=== PATIENT | female | born 1950 | race Caucasian/White ===

== ENCOUNTER 2024-04-16 01:02 | Emergency (ER) | payer MEDICARE, MEDICAID, SELFPAY ==
--- NOTE | ~2024-04-16 | CT_ITS ---
Noncontrast CT scan of the thoracolumbar spine CLINICAL HISTORY: Back pain TECHNIQUE: Axial noncontrast imaging of the thoracolumbar spine was performed. Sagittal and coronal r eformatted images were constructed. Dose reduction technique was used on this scan by utilizing autom ated exposure control and iterative reconstruction technique. The dose-length product (DLP) was 1179. 04 mGy-cm. FINDINGS: There is no fracture or subluxation of the thoracic spine. Vertebral bodies maintain normal height and alignment. Extensive anterior flowing osteophytes throughout the thoracic spine are greta tible with extensive DISH. There are minimal degenerative disc changes throughout the thoracic spine. There is advanced degenerative disc narrowing at T12-L1. There is scattered facet joint degenerative changes in the thoracic spine. No significant disc bulge or herniation evident in the thoracic spine. No definite high-grade canal s tenosis or cord compression identified. Neural foramina. Relatively well-preserved. Moderate hiatal hernia present. Paravertebral soft tissues otherwise are unremarkable. No acute fracture of the lumbar spine seen. There is 9 mm anterolisthesis of L4 over L5. There is min imal grade 1 retrolisthesis of L1 over L2. At L1-L2, there is minimal disc bulge and moderate facet arthropathy. There is probable mild to moder ate central canal stenosis. There is advanced bilateral neural foraminal narrowing. At L2-L3, there is disc bulge and facet arthropathy, resulting in moderate central canal stenosis/the alejandro sac compression. There is severe right neural foraminal narrowing, and mild left neural foraminal narrowing. L3-L4, disc bulge and facet arthropathy are present, with probable mild to moderate central canal venessa nosis. There is severe bilateral neural foraminal narrowing. At L4-L5, disc bulge/uncovering and severe facet arthropathy result in severe spinal canal stenosis/t hecal sac compression. There is severe bilateral neural foraminal conference. At L4-S1, there is facet arthropathy. No definite canal stenosis. There is moderate to severe bilater al neural foraminal narrowing. Paravertebral soft tissues are unremarkable. Impression: No acute fracture seen in the cervical lumbar spine. 9 mm anterolisthesis of L4 over L5. Severe degenerative spondylosis throughout the lumbar spine, worst at L4-L5. Mild spondylosis of the thoracic spine. Extensive DISH of the thoracic spine. Reviewed, dictated and finalized at location M. Impression: No acute fracture seen in the cervical lumbar spine. 9 mm anterolisthesis of L4 over L5. Severe degenerative spondylosis throughout the lumbar spine, worst at L4-L5. Mi ld spondylosis of the thoracic spine. Extensive DISH of the thoracic spine.
--- NOTE | ~2024-04-16 | CT_ITS ---
Noncontrast CT scan of the cervical spine Technique: Multiple contiguous axial [address] images of the cervical spine were obtained and rec onstructed in 2D sagittal and coronal planes on the acquisition scanner. Dose reduction technique was used on this scan by utilizing automated exposure control, adjustment of the mA and/or kV according to patient size. The dose-length product (DLP) was 300.21 mGy-cm. Clinical History: Pain Findings: No acute fracture seen. There is 7 mm anterolisthesis of C4 over C5. There is advanced dege nerative disc narrowing at C4-C5, C5-C6, C6-C7, with uncovertebral degenerative changes. There is fus ion of the left C5-C6 facet joint. There is right neural foraminal narrowing at C3-C4 with prominent right facet arthropathy. There is probable severe canal stenosis at C4-C5 related to the listhesis. T here is severe bilateral facet arthropathy with bilateral neural foraminal narrowing. There is probab le bilateral neural foraminal narrowing at C5-C6, with facet arthropathy and disc osteophyte complex. There is mild bilateral neural foraminal narrowing at C6-C7. Disc osteophyte complex results in prob able mild to moderate canal stenosis. No prevertebral soft tissue swelling. Impression: No acute fracture seen. 7 mm anterolisthesis of C4 over C5, with severe degenerative spondylosis at this level, including sev ere spinal canal stenosis and advanced bilateral neural foraminal narrowing. Additional degenerative changes, as detailed above. Reviewed, dictated and finalized at [facility]. Impression: No acute fracture seen. 7 mm anterolisthesis of C4 over C5, with severe degenerative spondylosis at thi s level, including severe spinal canal stenosis and advanced bilateral neural f oraminal narrowing. Additional degenerative changes, as detailed above.
--- NOTE | ~2024-04-16 | CT_ITS ---
Non-contrast Head CT History: Status post fall Technique: Axial non-contrast imaging of the brain was performed. Dose reduction technique was used on this scan by utilizing automated exposure control and iterative reconstruction technique. The dose -length product (DLP) was 1362.00 mGy-cm. Findings: There is no evidence of intracranial hemorrhage, mass lesion, or acute infarct. Brain par enchyma appears normal. The ventricles and subarachnoid spaces are normal in size. The calvarium ap pears normal. The visualized paranasal sinuses and mastoid air cells are clear. Impression: No significant abnormality seen. Reviewed, dictated and finalized at location . Impression: No significant abnormality seen.
--- NOTE | 2024-04-16 01:08 | ED.GENADULT ---
HPI - General Adult General Chief complaint: Unspecified Stated complaint: possible spinal fx Time Seen by Provider: 04/16/24 01:02 History of Present Illness HPI narrative: patient 73-year-old female who presents emergency department with chief complaint of possible cervical spine fracture. The patient was recently admitted at [facility] in all in the transferred all needs rehab and then to the [facility] or for rehab. The patient has had difficulty walking since a fall and apparently was evaluated at [facility] had x-rays and was told no fractures. Patient had an x-ray done at the nursing facility yesterday that showed that she had a possible C5 fracture Review of Systems Review of Systems: A 10 system review of systems was completed on the patient and is negative except for what is stated in the HPI. Nursing and ancillary documentation was reviewed. Exam Narrative: GENERAL: Well-appearing, well-nourished, and in no acute distress. HEAD: Normocephalic, atraumatic. EYES: PERRLA and EOMI. ENT: Nares clear, no rhinorrhea or epistaxis. Mucous membranes moist. NECK: Supple. CHEST: Clear to auscultation. No respiratory distress. HEART: Regular rate and rhythm. No murmur heard. Normal peripheral pulses. ABDOMEN: Soft, nontender, nondistended, normal active bowel sounds. EXTREMITIES: Normal range of motion. No edema. SKIN: Warm, dry, no rash. NEURO: No focal deficits. Alert and oriented x3. PSYCH: Normal mood and affect. Medical Decision Making MDM Narrative Medical decision making narrative: Differential diagnosis includes fracture, contusion CT C-spine was obtained that showed no evidence of fracture CT T-spine showed no fracture CT lumbar spine showed no fracture CT brain showed no acute abnormality Discharge Plan Discharge Clinical Impression: Back pain Patient Disposition: NH Senior Care/Asst Living Condition: Stable Instructions: Antibiotic Form, Back Pain (ED) Additional Instructions: the CT scan showed no evidence of fracture your cervical thoracic or lumbar spine Time of Disposition: 03:35
[2024-04-16 03:52] VITALS: BP 154/80; PULSE 81; RESP 15; O2SAT 98
[2024-04-16 04:44] VITALS: BP 150/82; PULSE 83; RESP 15; O2SAT 98
== END 2024-04-16 04:47 ==
PROVIDERS: Emergency Provider Emergency Medicine
DX: M54.9 Dorsalgia, unspecified (principal); M47.812 Spondylosis without myelopathy or radiculopathy, cervical region; M48.02 Spinal stenosis, cervical region; M47.814 Spondylosis without myelopathy or radiculopathy, thoracic region; M47.816 Spondylosis without myelopathy or radiculopathy, lumbar region; M48.14 Ankylosing hyperostosis [Forestier], thoracic region
CPT/HCPCS: 70450; 72125; 72128; 72131; 99284; J2270

== ENCOUNTER 2024-07-01 08:21 | Outpatient (CLI) | payer MEDICARE, SELFPAY ==
--- NOTE | ~2024-07-01 | MR_ITS ---
MR cervical spine wo con Ordering provider: Tanner Archer MD History: 74 years Female with . SEVERE BACK PAIN . Comparison: None. Technique: MRI cervical spine without contrast. FINDINGS: CERVICAL SPINAL CORD/CRANIAL CERVICAL JUNCTION: Myelomalacia is seen at the level of C4-C5. CERVICAL VERTEBRAL BODIES: Anterolisthesis seen at the level of C4-C5. Otherwise, Normal height and a lignment. Normal marrow signal. DISK SPACES: Endplate changes seen at the level of C4-C5. Narrowing of the disc C4-C5, C5-C6 and C6-7 . Multilevel facet joint disease bilaterally. C2-C3: No stenosis. C3-C4: No stenosis. Posterior osteophytes with disc bulge. Narrowing of the right intervertebral fora men with root compression. C4-C5: Severe spinal canal stenosis secondary to broad based disc bulge. Bilateral narrowing of the foramina with root compression. C5-C6: No stenosis. Mild Joint osteophytes slight narrowing of the foramina. C6-C7: No stenosis. Diffuse disc bulge with bilateral narrowing of the foramina and root compression . C7-T1: No stenosis. VISUALIZED PARASPINOUS SOFT TISSUES: Normal. IMPRESSION: 1. 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 2. Multilevel degenerative disc disease with variable degrees of spinal canal stenosis, intervertebr al foraminal narrowing and nerve root compression. 3. Anterolisthesis at the level of C4-C5. . Reviewed, dictated and finalized at location A. IMPRESSION: 1. 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 2. Multilevel degenerative disc disease with variable degrees of spinal canal stenosis, intervertebral foraminal narrowing and nerve root compression. 3. Anterolisthesis at the level of C4-C5. .
== END 2024-07-01 08:22 | disposition home or self-care (01) ==
PROVIDERS: PCP Family Medicine; Visit Provider Family Medicine
DX: M50.323 Other cervical disc degeneration at C6-C7 level (principal); M48.02 Spinal stenosis, cervical region; R53.81 Other malaise; G93.41 Metabolic encephalopathy; G62.9 Polyneuropathy, unspecified; E83.31 Familial hypophosphatemia; I10 Essential (primary) hypertension; M54.9 Dorsalgia, unspecified; E78.5 Hyperlipidemia, unspecified; Z91.81 History of falling; L89.626 Pressure-induced deep tissue damage of left heel; M62.81 Muscle weakness (generalized)
CPT/HCPCS: 72141

== ENCOUNTER 2024-07-08 13:21 | Outpatient (CLI) | payer MEDICARE, SELFPAY ==
--- NOTE | ~2024-07-08 | XR_ITS ---
XR cervical spine 4-5V Ordering provider: Esperanza Menezes MD History: . M43.12 - Spondylolisthesis, cervical region . Comparison: CT done on April 16, 2024 FINDINGS: VERTEBRAL BODIES: Significant Anterolisthesis seen at the level of C4-C5. DISK SPACES: Narrowing of the disc C4-C5, C5-C6 and C6-C7. Multilevel facet joint disease. Multilevel uncovertebral joint osteoarthritic changes. PARASPINOUS SOFT TISSUES: No prevertebral soft tissue swelling. IMPRESSION: Anterolisthesis at the level of C4-C5. No change from previous examination is noted. Multilevel degenerative disc disease, facet joint disease and uncovertebral joint osteoarthritic white ges. Reviewed, dictated and finalized at location A. IMPRESSION: Anterolisthesis at the level of C4-C5. No change from previous examination is n oted. Multilevel degenerative disc disease, facet joint disease and uncovertebral alli nt osteoarthritic changes.
== END 2024-07-08 13:22 | disposition home or self-care (01) ==
PROVIDERS: PCP Family Medicine; Visit Provider Neurological Surgery
DX: M43.12 Spondylolisthesis, cervical region (principal); M50.321 Other cervical disc degeneration at C4-C5 level; M50.322 Other cervical disc degeneration at C5-C6 level; M50.323 Other cervical disc degeneration at C6-C7 level; M47.892 Other spondylosis, cervical region
CPT/HCPCS: 72050

== ENCOUNTER 2024-07-28 14:11 | Inpatient (IN) | payer MEDICARE, MEDICAID, SELFPAY ==
[2024-07-27 12:34] VITALS: BMI 25.0
--- NOTE | 2024-07-27 12:46 | PC.NURSE ---
Report to the Outpatient Waiting Room, entrance under the green pavilion located off [facility], at time ___7:30AM____ on date ___07/28/24____. Planned Procedure Time: ___9:30AM .? Time changes happen often and if your time is changed the preop area will call you the afternoon before. - You and your visitor will be asked to self-screen and do not enter if you have any COVID symptoms. Please call surgeon if you need to reschedule. - A mask is optional within the hospital at this time. Patients may have clear liquids (water, carbonated beverages, clear teas, apple juice) until 6:30AM, 3 hours prior to surgery with a maximum of 20 ounces. - No food from midnight until time of surgery and no smoking. Take only the following medications with a SIP of water on the morning of surgery: __CARVEDILOL, GABAPENTIN, SERTRALINE, TRAMADOL. MAY GIVE ONDANSETRON NEEDED FOR NAUSEA. DO NOT STOP ANY OF YOUR OTHER PRESCRIPTION MEDICATIONS PRIOR TO SURGERY EXCEPT THE FOLLOWING Medications to discontinue per physician ___HOLD ALL VITAMINS/SUPPLEMENTS 7 DAYS PRE-OP PER DR JHA(PER [facility] WRITTEN INSTRUCTIONS)- LAST DOSE 07/20/24. Please no make-up, nail chinese, hairspray, perfume, deodorant, or body powder the day of surgery.? No jewelry (including any body piercings) or valuables the day of surgery, leave them at home.? Please take a shower or bath the night before, or the morning of, surgery with an antibacterial soap.? Wear comfortable, loose fitting clothing.? - Jewelry must be removed prior to entering the operating room.? Rings and piercings that are not removed may be cut off. - The hospital will not accept responsibility for valuables.? - Please leave all valuables, including medications, at home the day of surgery. If you are going home after surgery, a licensed front loader residential driver must drive you home.? - NO public transportation without another adult if you receive anesthesia. - We recommend that an adult stay with you for 24 hours following discharge. - We also recommend that you do not drive, make important decision, drink alcoholic beverages, or take any drugs that were not prescribed by your health care provider for at least 24 hours after your discharge time. Follow any additional instructions given to you from your surgeon. Telephone instructions given to ____NURSING HOME NURSEJERROD and asked if any additional questions and then verbalized understanding. Patient advised to call surgeon office or pre surgery nurse liaison [phone] if any additional questions.
[2024-07-28] VITALS (28 sets, daily range): BP systolic 117–180; BP diastolic 53–88; PULSE 42–65; RESP 8–22; TEMP 36.2–36.7; O2SAT 92–100; BMI 29.7
--- NOTE | ~2024-07-28 | XR_ITS ---
EXAMINATION: XR fluoroscopy no charge DATE: 07/28/2024 13:54 INDICATION: Cervical spondylosis. TECHNIQUE: 5 intraoperative fluoroscopic views of the cervical spine were obtained. I was not present . Fluoroscopy exposure time was 29 seconds. COMPARISON: Cervical spine radiographs 07/08/2024 FINDINGS: There is 4 mm anterolisthesis of C4 on C5. There are changes of posterior fusion procedure from C3 to C7 with lateral mass screws. IMPRESSION: 1. Posterior fusion procedure from C3 to C7. Reviewed, dictated and finalized at location B.
--- NOTE | ~2024-07-28 | XR_ITS ---
EXAMINATION: XR chest 1V portable Exam Date/Time: 07/28/2024 21:29 CDT HISTORY: hypercapnia Comparison: CT T-spine 04/16/2024. RESULT: Lines, tubes, and devices: None. Lungs and pleura: Senescent/emphysematous change. Left basilar scar/atelectasis. Cardiomediastinal silhouette: Stable. Other: No acute osseous or upper abdominal finding. Degenerative changes in the spine and bilateral shoulders IMPRESSION: No acute cardiopulmonary process. Reviewed, dictated and finalized at location K.
[2024-07-28] MEDS: LACTATED RINGERS 1,000 ML 30 ML IV CONT ×2 (08:00→14:19)
--- NOTE | 2024-07-28 09:14 | WPDHPUPDATE1 ---
History and Physical Update Update Date/Time: 07/28/24 09:14 History and Physical has been reviewed, including an updated exam of the patient. There are NO changes in the patient's condition. Risks, benefits, and alternatives have been discussed and questions answered. Patient agrees to proceed with procedure.
--- NOTE | 2024-07-28 09:33 | P.PNAN_ITS ---
Anes - Initial Pre Proc Eval Procedure: Operation Date: 07/28/24 10:00 Proposed Procedures p Posterior Cervical Decompression and Fusion C3- C6 - Esperanza Menezes MD Date/Time: 07/28/24 09:33 Surgeon: Esperanza Menezes MD Pre Op Diagnosis: cervical myelopathy,cervical spondylolisthesis Patient Data Age: 74 Gender: F Height: 1.52 m Weight: 69 kg Last Vital Signs Temp 36.7 C 07/28/24 08:00 Pulse 52 L 07/28/24 08:00 Resp 14 07/28/24 08:00 BP 150/64 H 07/28/24 08:00 Pulse Ox 97 07/28/24 08:00 O2 Del Method Room Air 07/28/24 08:00 Allergies Allergy/AdvReac Type Severity Reaction Status Date / Time Penicillins Allergy Severe Unknown Verified 07/28/24 08:41 Home Medications Medication Instructions Recorded Confirmed Type acetaminophen 325 mg capsule 650 mg PO Q6H PRN Pain 07/07/24 07/27/24 History atorvastatin 10 mg tablet (Lipitor) 10 mg PO EVERY OTHER DAY 07/07/24 07/28/24 History baclofen 5 mg tablet 5 mg PO TID 07/07/24 07/28/24 History bisacodyl 10 mg rectal suppository 10 mg RECTAL DAILY PRN Constipation 07/07/24 07/27/24 History gabapentin 400 mg capsule 400 mg PO TID 07/07/24 07/28/24 History lidocaine 5 % topical patch 1 patch topical DAILY 07/07/24 07/27/24 History losartan 100 mg tablet 100 mg PO DAILY 07/07/24 07/28/24 History magnesium citrate (Citroma oral 300 ml PO DAILY PRN Constipation 07/07/24 07/27/24 History solution) ondansetron 4 mg disintegrating 4 mg PO Q6H PRN Nausea And Vomiting 07/07/24 07/27/24 History tablet potassium chloride 10 mEq 10 meq PO DAILY 07/07/24 07/28/24 History capsule,extended release ropinirole 0.25 mg tablet 0.25 mg PO HS 07/07/24 07/28/24 History sennosides 8.6 mg tablet 8.6 mg PO BID 07/07/24 07/28/24 History sertraline 50 mg tablet 100 mg PO QAM 07/07/24 07/28/24 History sodium phosphates 19 gram-7 118 ml RECTAL ONCE PRN Constipation 07/07/24 07/27/24 History gram/118 mL enema (Fleet Enema) tramadol 50 mg tablet 100 mg PO BID PRN Pain 07/07/24 07/28/24 History alprazolam 0.25 mg tablet 0.25 mg PO BID 07/27/24 07/28/24 History carvedilol 6.25 mg tablet 6.25 mg PO BID 07/27/24 07/28/24 History cholecalciferol (vitamin D3) 25 25 mcg PO DAILY 07/27/24 07/28/24 History mcg (1,000 unit) tablet magnesium hydroxide 400 mg/5 mL 30 ml PO HS PRN Constipation 07/27/24 07/27/24 History oral suspension (Milk of Magnesia) multivitamin 1 tablet PO DAILY 07/27/24 07/28/24 History polyethylene glycol 3350 17 17 g PO DAILY 07/27/24 07/28/24 History gram/dose oral powder Laboratory Tests 07/28/24 08:03 Blood Type O Positive Antibody Screen Negative Patient hx anesthesia problems: none Family hx anesthesia problems: none Results Review: All pre-operative results and documents have been reviewed as part of the pre- operative evaluation. [facility] Past Medical History Medical History Anxiety Arthritis Hypertension IBS (irritable bowel syndrome) Migraine Family History Family History Father Hypertension Mother Lung cancer Social History Social History Smoking status: Unknown if ever smoked Alcohol intake: unknown Substance use: unknown Do You Feel Safe in your Home?: Yes Lack of Transportation: No Lack of Food: Never True Current Housing: I Have Housing Concerned About Future Housing: No Difficulty Paying Gas/Electric Bills: No Difficulty Paying for Meds: No Currently Unemployed: No Education: High School Diploma/GED Difficulty w/ Childcare or Family Care: No Living arrangements: fpc Anes - Eval Final PreProcedure Day of Procedure 07/28/24 09:33 Patient weight: overweight Heart: regular rate and rhythm Lungs: clear to auscultation and normal air movement Airway: Mallampati scale class III Neurological: alert and oriented Last oral intake: >/= 8 hours ASA classification: III Emergent: no Anesthetic plan: proceed Anesthesia type and monitoring: general ETT (TIVA) Results Review: All pre-operative results and documents have been reviewed as part of the pre- operative evaluation. Informed Consent: The patient's anesthetic plan and its attendant risks and benefits were discussed with the patient/family/POA. Questions were solicited and answers provided to the satisfaction of the patient/family/POA.
[2024-07-28] MEDS: ceFAZolin 2 GM/D5W 50 ML 2 GM/50 ML BAG IVPB (09:44)
[2024-07-28] MEDS: LIDO 1%/EPINEPHRINE 1:100,000 20 ML VIAL 30 ML INFILTRATE (10:08)
--- NOTE | 2024-07-28 14:17 | PM.OP ---
Procedure Note - Brief Procedure Note - Brief Date of procedure: 07/28/24 cervical myelopathy,cervical spondylolisthesis Post-op diagnosis: Same Procedure performed: C3-7 instrumentation and arthrodesis C3, C4, C5, and C6 laminectomies Surgeon: Esperanza Menezes MD Anesthesia: GETA Findings: Wide decompression of spinal cord with stabilization from C3-7 Estimated blood loss (mL): 200 Drains: Yes Packing: No Pathology: None sent Complications: None Condition: Stable Disposition: PACU
--- NOTE | 2024-07-28 15:27 | SUR.PHASEI ---
Notified Dr. Marquez regarding patient sleeping/sedated with oral airway for i hour in PACU. Very small grimace to sternal rub. Dr. Marquez stated to continue to monitor patient and update Dr. Menezes as well.
[2024-07-28 15:39] LABS: Glucose Point of Care 112 mg/dl (65-105)
--- NOTE | 2024-07-28 15:45 | SUR.PHASEI ---
Update given to Dr. Menezes. Patient slightly more responsive to sternal rub. Patient attempts to open eyes when name is called. Dr. Menezes stated she would call back to check on patient.
--- NOTE | 2024-07-28 17:10 | SUR.PHASEI ---
Dr. Stinson at bedside to assess patient per RN request. ABG ordered.
--- NOTE | 2024-07-28 17:17 | SUR.PHASEI ---
Dr. Stinson notified of critical ABG results. Bipap ordered. RT aware.
[2024-07-28 17:18] LABS: Alveolar/Arterial O2 Gradient 25.8 mmHg; Base Excess ABG 0.1 mEq/l (+/-2.0); Fractional Inspired Oxygen 24 %; HCO3 ABG 28.7 mEq/l (22.0-26.0); Oxygen Content ABG 19.4 %vol (16.0-22.0); Oxygen Saturation ABG 91.2 % (95.0-100.0); Oxyhemoglobin 91.8 % THb (90.0-100.0); PO2 ABG 69.6 mmHg (80.0-100.0)
[2024-07-28 17:22] LABS: Device NASAL CANNULA; Modified Allen's Test Pass; PCO2 ABG 63.6 mmHg (35.0-45.0); Site Drawn RIGHT RADIAL; pH ABG 7.272 (7.350-7.450)
--- NOTE | 2024-07-28 17:31 | W.PM.PROC2 ---
Procedure Note - Detailed Date of Procedure 07/28/24 Pre-op Diagnosis cervical myelopathy,cervical spondylolisthesis Post-op Diagnosis Same Procedure Performed 1. C3, C4, C5, C6, and C7 lateral mass instrumentation 2. C3-4, C4-5, C5-6, and C6-7 arthrodesis with autograft and allograft 3. C3, C4, C5, and C6 laminectomies 4. Use of C-arm for fluoroscopy 5. Use of MEP and SSEP neuromonitoring Surgeon Esperanza Menezes MD Section Leader And Machine Setter [facility] Anesthesia General Description of Procedure The patient was brought to the operating room where endotracheal anesthesia was induced. Servin catheter was placed. Neuromonitoring leads were placed, and a pre-flip baseline was obtained. The [place] headholder was applied, and the patient was transferred to the operating table in the prone position. The head was secured to the bed. All pressure points were padded. The C-arm was used to evaluate the planned incision. The planned surgical site was prepped and draped in usual sterile fashion. Time out was conducted, and local anesthesia was injected. After flipping, the motors in the left leg became diminished. We verified adequate blood pressure and reviewed positioning. A 10-blade scalpel was used to make the incision. The subcutaneous tissue was dissected with the bovie until the spinous processes were encountered. Self-retaining retractors were placed. A clamp was placed on a spinous process which was confirmed to be the C3 level with the C-arm. The incision was extended inferiorly to better expose down to the inferior level. The muscles were elevated in a subperiosteal fashion to expose the laminae and lateral masses of C4 through C7 bilaterally. The facet joints were exposed and defined with the bovie, and the pilot plant operator helper holes for the lateral mass screws were created with the high-speed drill. On the right side, the hand drill was used to drill through the lateral mass to a depth of 12mm at C4. The trajectory was palpated with a ball-tip probe to ensure where were no breeches in the bone. The drill was then lengthened to 14mm. The 3.0mm tap was then passes. This was repeated at C4, C5, C6, and C7. Bone wax was placed over the screw holes. This was then repeated on the left side at C4, C5, C6, and C7. We then turned our attention to the laminectomies. The high-speed drill was used to create a trough through the laminae of C4, C5, and C6. The posterior elements were elevated with a Leksell and Kerrison rongeurs, and the bone was passed off to be morselized for autograft. The ligamentum flavum was elevated with the bone. Small residual pieces of ligamentum and bone were removed with the kerrison. The facet joints were decorticated with the drill.? We ensured hemostasis with the bipolar and Floseal. We next turned our attention to the lateral mass screws. The screw trajectories were palpated again with the balltip probe. 14 x 3.5mm screws were placed at each level bilaterally with exception of at C4 were 12mm screws were placed. We then obtained an xray that showed that the C4-7 levels had been instrumented. I intended to instrument and decompress C3 as well. Therefore, we then placed 14mm screws at C3 in the same manner as described above. The spinous process and lamina at C3 were somewhat obscured by the spinous process at C2 but were able to be removed. A 60mm beatriz was placed bilaterally. The set screws were placed which were final tightened. The area was copiously irrigated. The bone and facets were decorticated. Magnetos followed by morselized autograft was placed lateral to the screws bilaterally and into the facets. A hemovac drain was placed in the epidural space and tunneled inferiorly. Motors and SSEPs remained stable throughout the case. The muscle was approximated with 0 vicryl. The fascia was closed with 0 vicryl as well. The dermis was closed with 2-0 and 3-0 vicryl. The skin was closed with running 3-0 nylon. The drain was secured with a nylon as well. Sterile dressings were placed. The patient was then removed from the [place] headholder and returned supine. The patient was extubated and transferred to the PACU in stable condition. Billing codes: 56257, 24677, 33082 x 3, 32429 Drains Yes Packing No Pathology None sent Complications None Condition Stable Disposition PACU [facility] Billing Surgery - Charge Forward: Surgery Billing
--- NOTE | 2024-07-28 17:40 | SUR.PHASEI ---
Dr. Menezes updated on patient's need for continuous bipap and transfer to IMU. Orders entered. Hospitalist Nadege Sims aware of new consult.
--- NOTE | 2024-07-28 17:56 | WPDNEUROSGPN ---
Progress Note: A&P Assessment and Plan (1) Cervical myelopathy: Code(s): G95.9 - Disease of spinal cord, unspecified Status: Acute (2) Status post cervical arthrodesis: Code(s): Z98.1 - Arthrodesis status Status: Acute Plan -She will need to go to IMU with BiPAP -Hospitalist has been consulted for assistance with BiPAP management - appreciate help -Hemovac drain to suction -PT/OT evaluations tomorrow -Pain control Subjective Date/time seen: 07/28/24 17:56 Interval history: She has been very slow to wake up after surgery. Anesthesia recently checked an ABG showing CO2 retention, and they recommended BiPap which has helped her wake up much more quickly. Exam Narrative: Opens eyes to voice Answering questions Following commands in all extremities Antigravity strength in arms Wiggling toes briskly to command Some movement noted in legs Sensation intact Objective Data Vital Signs Vital Signs: Vital Signs - 24 hr 07/28/24 08:00 07/28/24 14:19 07/28/24 14:35 Temperature 98.0 F 97.3 F L Pulse Rate 52 L 60 53 L Respiratory Rate 14 8 L 10 L Blood Pressure 150/64 H 180/69 H 117/53 L Pulse Oximetry 97 100 100 Oxygen Delivery Room Air Simple Face Mask Simple Face Mask Oxygen Flow Rate 8 8 Fraction of Inspired Oxygen 07/28/24 14:50 07/28/24 15:05 07/28/24 15:20 Temperature Pulse Rate 53 L 55 L 63 Respiratory Rate 12 10 L 12 Blood Pressure 118/55 L 118/54 L 127/62 Pulse Oximetry 100 100 100 Oxygen Delivery Simple Face Mask Simple Face Mask Simple Face Mask Oxygen Flow Rate 8 8 8 Fraction of Inspired Oxygen 07/28/24 15:35 07/28/24 15:50 07/28/24 16:05 Temperature Pulse Rate 59 L 57 L 62 Respiratory Rate 10 L 12 12 Blood Pressure 135/60 142/63 H 144/83 H Pulse Oximetry 100 100 92 Oxygen Delivery Simple Face Mask Simple Face Mask Room Air Oxygen Flow Rate 8 6 Fraction of Inspired Oxygen 07/28/24 16:20 07/28/24 16:35 07/28/24 16:50 Temperature Pulse Rate 63 63 65 Respiratory Rate 12 12 12 Blood Pressure 163/69 H 167/63 H 165/85 H Pulse Oximetry 100 100 99 Oxygen Delivery Nasal Cannula Nasal Cannula Nasal Cannula Oxygen Flow Rate 2 2 1 Fraction of Inspired Oxygen 07/28/24 17:05 07/28/24 17:20 07/28/24 17:35 Temperature 97.2 F L Pulse Rate 59 L 58 L 48 L Respiratory Rate 12 12 18 Blood Pressure 163/82 H 160/82 H 130/57 L Pulse Oximetry 99 95 97 Oxygen Delivery Nasal Cannula Nasal Cannula BiPAP Oxygen Flow Rate 1 1 Fraction of Inspired Oxygen 30 07/28/24 17:34 Temperature Pulse Rate 53 L Respiratory Rate 13 Blood Pressure Pulse Oximetry 100 Oxygen Delivery BiPAP Oxygen Flow Rate Fraction of Inspired Oxygen Intake/Output Intake/Output: Intake & Output 07/25/24 07/26/24 07/27/24 07/28/24 23:59 23:59 23:59 23:59 Intake Total 50 Balance 50 Meds/Results Medications: Active Medications Generic Name Dose Route Start Last Admin Trade Name Freq PRN Reason Stop Dose Admin Acetaminophen 1,000 mg 07/28/24 14:15 Acetaminophen 500 Mg Tablet PO Q6H [facility] Al Hydrox/Mg Hydrox/Simethicone 20 ml 07/28/24 14:11 Mag Hydrox/Al Hydrox/Simeth 30 Ml Udc PO Q4H PRN Indigestion/Heartburn Alprazolam 0.25 mg 07/28/24 17:00 Alprazolam (*Crx) 0.25 Mg Tablet PO BID [facility] Atorvastatin Calcium 10 mg 07/30/24 09:00 Atorvastatin 10 Mg Tablet PO Q48H [facility] Baclofen 5 mg 07/28/24 17:00 Baclofen 5 Mg Tablet PO TID [facility] Bisacodyl 10 mg 07/28/24 14:11 Bisacodyl 10 Mg Suppository RECTAL DAILY PRN Constipation Bisacodyl 10 mg 07/28/24 14:14 Bisacodyl 10 Mg Suppository RECTAL DAILY PRN Constipation Carvedilol 6.25 mg 07/28/24 21:00 Carvedilol 6.25 Mg Tablet PO Q12HR [facility] Cyclobenzaprine HCl 10 mg 07/28/24 14:11 Cyclobenzaprine Hcl 10 Mg Tablet PO TID PRN Muscle Spasms Docusate Sodium 100 mg 07/28/24 21:00 Docusate Sodium 100 Mg Capsule PO Q12HR [facility] Fentanyl Citrate 25 mcg 07/28/24 14:41 Fentanyl Citrate Inj (*Crx) 100 Mcg/2 Ml Vial IV PUSH Q2M PRN Pain Gabapentin 400 mg 07/28/24 17:00 Gabapentin 400 Mg Capsule PO TID [facility] Lactated Ringer's 1,000 mls @ 30 mls/hr 07/28/24 10:20 07/28/24 14:19 Lr - Lactated Ringers Iv IV CONT Infused .Q24H [facility] Infusion Cefazolin Sodium 1 gm in 50 mls @ 100 mls/hr 07/28/24 18:00 Ancef 1 Gm/Ns 50 Ml IVPB Q8H [facility] Sodium Chloride 1,000 mls @ 100 mls/hr 07/28/24 14:15 Normal Saline Iv IV CONT .Q10H [facility] Lactated Ringer's 1,000 mls @ 30 mls/hr 07/28/24 14:45 07/28/24 14:19 Lr - Lactated Ringers Iv IV CONT 30 mls/hr .Q24H [facility] Administration Losartan Potassium 100 mg 07/29/24 09:00 Losartan Potassium 100 Mg Tablet PO DAILY [facility] Magnesium Citrate 300 ml 07/28/24 14:14 Magnesium Citrate 300 Ml Btl PO DAILY PRN Constipation Magnesium Hydroxide 30 ml 07/28/24 14:14 Magnesium Hydroxide Susp 30 Ml Udc PO HS PRN Constipation Morphine Sulfate 2 mg 07/28/24 14:11 Morphine Sulfate (*Crx) 2 Mg/Ml Inj IV PUSH Q2H PRN Breakthrough pain Ondansetron HCl 4 mg 07/28/24 14:11 Ondansetron Inj 4 Mg/2 Ml Vial IV PUSH Q8H PRN Nausea And Vomiting Ondansetron HCl 4 mg 07/28/24 14:41 Ondansetron Inj 4 Mg/2 Ml Vial IV PUSH ONCE PRN Nausea Oxycodone HCl 10 mg 07/28/24 14:11 Oxycodone Hcl (*Crx) 5 Mg Tab Ir PO Q4H PRN Pain Rated 7-10 Oxycodone HCl 5 mg 07/28/24 14:11 Oxycodone Hcl (*Crx) 5 Mg Tab Ir PO Q4H PRN Pain Rated 4-6 Polyethylene Glycol 17 gm 07/29/24 09:00 Polyethylene Glycol 3350 17 Gm Powd.Pack PO DAILY [facility] Potassium Chloride 10 meq 07/29/24 09:00 Potassium Chloride 10 Meq Er Tablet PO DAILY [facility] Ropinirole HCl 0.25 mg 07/28/24 21:00 Ropinirole Hcl 0.25 Mg Tablet PO HS [facility] Senna 8.6 mg 07/28/24 17:00 Sennosides 8.6 Mg Tablet PO BID [facility] Senna/Docusate Sodium 1 tab 07/28/24 14:11 Senna/Docusate Sodium Tablet PO HS PRN Constipation Sertraline HCl 100 mg 07/29/24 09:00 Sertraline Hcl 50 Mg Tablet PO QAM [facility] Radiology Results: ITS Impressions Fluoroscopy 07/28/24 14:06 IMPRESSION: 1. Posterior fusion procedure from C3 to C7. Labs Labs: Laboratory Results - last 24 hr 07/28/24 07/28/24 07/28/24 08:03 15:35 17:14 Puncture Site Right radial ABG pH 7.272 L* ABG pCO2 63.6 H* ABG pO2 69.6 L ABG PO2/FiO2 Ratio 2.90 ABG HCO3 28.7 H ABG O2 Saturation 91.2 L ABG O2 Content 19.4 ABG Base Excess 0.1 A-a Gradient 25.8 Oxyhemoglobin 91.8 Total Hemoglobin 15.0 O2 Delivery Device Nasal cannula O2 Liters/Min 1.0 FiO2 24 POC Capillary Glucose 112 H Blood Type O Positive Antibody Screen Negative
--- NOTE | 2024-07-28 18:15 | PM.IMCN ---
Assessment and Plan Assessment and plan (1) Prolonged emergence from general anesthesia: Qualifiers: Encounter type: initial encounter Qualified Code(s): T88.59XA - Other complications of anesthesia, initial encounter Code(s): T88.59XA - Other complications of anesthesia, initial encounter Status: Acute Assessment and Plan: - ABG, initial: pH 7.272, pCO2 63.6, pO2 69.6, HCO3 28.7, O2 sat 91.2% on 1L NC. 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 - incentive spirometer - PT/OT eval and treat (3) Hypertension: Qualifiers: Hypertension type: primary hypertension Qualified Code(s): I10 - Essential (primary) hypertension Code(s): I10 - Essential (primary) hypertension Status: Chronic Assessment and Plan: - chronic, currently 146/66 - continue home medications: carvedilol 6.25 mg b.i.d., losartan 100 mg daily - monitor Plan Diet: Regular GI Prophylaxis: Not currently indicated DVT Prophylaxis: SCDs Lines: Peripheral Code Status: Full code HPI Date of Consult Consult date: 07/28/24 Requesting Physician: Esperanza Menezes MD Primary Care Provider: Tanner Archer MD Consult Narrative Reason for consult: BiPAP management Narrative: Rosa Marie is a 74 year old female who presented here for management of her cervical spondylolisthesis. Per neurosurgery office visit note on 07/15/2024, the patient has been reporting neck pain for at least the past 6 months with radiation into her shoulders. She has also been experiencing progressive weakness in her hands, numbness in her bilateral upper extremities, difficulty walking, urinary urgency and frequency. Weakness in her hands is causing her difficulty in gripping objects and utilizing utensils to feed herself. Patient was also transferred to a group home in the past year due to rib due stability, has been unable to walk since February. Given progression of symptoms, the patient elected to move forward with surgical management. The patient underwent a posterior cervical decompression and fusion C3-6. Postoperatively, patient was slow to recover. ABG was obtained which showed pH of 7.272, CO2 63.6, O2 69.6, HC03 28.7. Preop VS: 98? F, HR 52, RR 14, 150/64, and 97% on RA. Review of Systems Review of Systems: All systems reviewed & are unremarkable except as noted in HPI and below PMFSH Past Medical History Medical History Anxiety Arthritis Familial hypophosphatemia HLD (hyperlipidemia) Hypertension IBS (irritable bowel syndrome) Migraine Surgical History Surgical History Status post cervical arthrodesis Family History Family History Father Hypertension Mother Lung cancer Social History Social History Smoking status: Unknown if ever smoked Alcohol intake: unknown Substance use: unknown Do You Feel Safe in your Home?: Yes Lack of Transportation: No Lack of Food: Never True Current Housing: I Have Housing Concerned About Future Housing: No Difficulty Paying Gas/Electric Bills: No Difficulty Paying for Meds: No Currently Unemployed: No Education: High School Diploma/GED Difficulty w/ Childcare or Family Care: No Living arrangements: group home Meds Home Medications and Allergies Home Medications Medication Instructions Recorded Confirmed Type acetaminophen 325 mg capsule 650 mg PO Q6H PRN Pain 07/07/24 07/27/24 History atorvastatin 10 mg tablet (Lipitor) 10 mg PO EVERY OTHER DAY 07/07/24 07/28/24 History baclofen 5 mg tablet 5 mg PO TID 07/07/24 07/28/24 History bisacodyl 10 mg rectal suppository 10 mg RECTAL DAILY PRN Constipation 07/07/24 07/27/24 History gabapentin 400 mg capsule 400 mg PO TID 07/07/24 07/28/24 History lidocaine 5 % topical patch 1 patch topical DAILY 10/09/24 10/29/24 History losartan 100 mg tablet 100 mg PO DAILY 07/07/24 07/28/24 History magnesium citrate (Citroma oral 300 ml PO DAILY PRN Constipation 07/07/24 07/27/24 History solution) ondansetron 4 mg disintegrating 4 mg PO Q6H PRN Nausea And Vomiting 07/07/24 07/27/24 History tablet potassium chloride 10 mEq 10 meq PO DAILY 07/07/24 07/28/24 History capsule,extended release ropinirole 0.25 mg tablet 0.25 mg PO HS 07/07/24 07/28/24 History sennosides 8.6 mg tablet 8.6 mg PO BID 07/07/24 07/28/24 History sertraline 50 mg tablet 100 mg PO QAM 07/07/24 07/28/24 History sodium phosphates 19 gram-7 118 ml RECTAL ONCE PRN Constipation 07/07/24 07/27/24 History gram/118 mL enema (Fleet Enema) tramadol 50 mg tablet 100 mg PO BID PRN Pain 07/07/24 07/28/24 History alprazolam 0.25 mg tablet 0.25 mg PO BID 07/27/24 07/28/24 History carvedilol 6.25 mg tablet 6.25 mg PO BID 07/27/24 07/28/24 History cholecalciferol (vitamin D3) 25 25 mcg PO DAILY 07/27/24 07/28/24 History mcg (1,000 unit) tablet magnesium hydroxide 400 mg/5 mL 30 ml PO HS PRN Constipation 07/27/24 07/27/24 History oral suspension (Milk of Magnesia) multivitamin 1 tablet PO DAILY 07/27/24 07/28/24 History polyethylene glycol 3350 17 17 g PO DAILY 07/27/24 07/28/24 History gram/dose oral powder Allergies Allergy/AdvReac Type Severity Reaction Status Date / Time Penicillins Allergy Severe Unknown Verified 07/28/24 08:41 Vital Signs Vital Signs - 24 hr 07/28/24 08:00 07/28/24 14:19 07/28/24 14:35 Temperature 98.0 F 97.3 F L Pulse Rate 52 L 60 53 L Respiratory Rate 14 8 L 10 L Blood Pressure 150/64 H 180/69 H 117/53 L Pulse Oximetry 97 100 100 Oxygen Delivery Room Air Simple Face Mask Simple Face Mask Oxygen Flow Rate 8 8 Fraction of Inspired Oxygen 07/28/24 14:50 07/28/24 15:05 07/28/24 15:20 Temperature Pulse Rate 53 L 55 L 63 Respiratory Rate 12 10 L 12 Blood Pressure 118/55 L 118/54 L 127/62 Pulse Oximetry 100 100 100 Oxygen Delivery Simple Face Mask Simple Face Mask Simple Face Mask Oxygen Flow Rate 8 8 8 Fraction of Inspired Oxygen 07/28/24 15:35 07/28/24 15:50 07/28/24 16:05 Temperature Pulse Rate 59 L 57 L 62 Respiratory Rate 10 L 12 12 Blood Pressure 135/60 142/63 H 144/83 H Pulse Oximetry 100 100 92 Oxygen Delivery Simple Face Mask Simple Face Mask Room Air Oxygen Flow Rate 8 6 Fraction of Inspired Oxygen 07/28/24 16:20 07/28/24 16:35 07/28/24 16:50 Temperature Pulse Rate 63 63 65 Respiratory Rate 12 12 12 Blood Pressure 163/69 H 167/63 H 165/85 H Pulse Oximetry 100 100 99 Oxygen Delivery Nasal Cannula Nasal Cannula Nasal Cannula Oxygen Flow Rate 2 2 1 Fraction of Inspired Oxygen 07/28/24 17:05 07/28/24 17:20 07/28/24 17:35 Temperature 97.2 F L Pulse Rate 59 L 58 L 48 L Respiratory Rate 12 12 18 Blood Pressure 163/82 H 160/82 H 130/57 L Pulse Oximetry 99 95 97 Oxygen Delivery Nasal Cannula Nasal Cannula BiPAP Oxygen Flow Rate 1 1 Fraction of Inspired Oxygen 30 07/28/24 17:50 07/28/24 18:05 07/28/24 17:34 Temperature Pulse Rate 47 L 46 L 53 L Respiratory Rate 14 14 13 Blood Pressure 156/75 H 145/70 H Pulse Oximetry 100 100 100 Oxygen Delivery BiPAP BiPAP BiPAP Oxygen Flow Rate Fraction of Inspired Oxygen 30 30 Exam Const: General: comfortable and no acute distress Other: , female, nontoxic appearance. HENMT: Face/Nose/Sinus: Normal nares present Mouth: Yes moist mucous membranes Other: BiPAP mask in place. Eyes: General: appearance normal, both eyes and all related structures Sclera: sclerae normal Pupils: Equal, round and reactive pupils present EOM: EOMs intact bilaterally Other: Pupils 3-4 mm bilaterally and reactive. Resp: Effort & Inspection: normal respiratory effort Auscultation: clear to auscultation bilaterally Other: Shallow inspiration. 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 A&O x4. Somnolent. Extrem: General: normal to inspection Psych: Mental Status: mental status grossly normal Affect: normal affect Other: fair insight and judgment at present. Quality VTE Prophylaxis VTE prophylaxis: mechanical ordered Hospitalist MIPS Advance Care Plan I have confirmed that the patient's Advanced Care Plan is present, code status is documented, or surrogate decision maker is listed in patient medical record.: Yes Medication Reconciliation I have utilized all available resources to obtain, update and review the patients current medications (includes all prescriptions, OTC, herbals, cannabis, and nutritional supplements).: Yes
[2024-07-28] MEDS: ceFAZolin 1 GM/NS 50 ML 1 GM/50 ML BAG IVPB (18:40)
[2024-07-28 18:54] LABS: Alveolar/Arterial O2 Gradient 52.3 mmHg; Base Excess ABG -1.2 mEq/l (+/-2.0); Device BIPAP; Fractional Inspired Oxygen 30 %; Modified Allen's Test Pass; Oxygen Saturation ABG 96.8 % (95.0-100.0); Oxyhemoglobin 96.3 % THb (90.0-100.0); PCO2 ABG 53.3 mmHg (35.0-45.0); Site Drawn LEFT RADIAL; Total Hemoglobin 14.7 g/dL (12.0-18.0); pH ABG 7.306 (7.350-7.450)
[2024-07-28 18:55] LABS: Expiratory Pressure 5 cmH2O; Inspiratory Pressure 12 cmH2O
--- NOTE | 2024-07-28 19:00 | SUR.PHASEI ---
Patient meets PACU discharge criteria, unit bed unavailable at this time. Patient placed in extended recovery status.
[2024-07-28] MEDS: ACETAMINOPHEN 500 MG TABLET 1000 MG PO (21:08)
[2024-07-28] MEDS: rOPINIRole HCL 0.25 MG TABLET PO (21:08)
[2024-07-28] MEDS: DOCUSATE SODIUM 100 MG CAPSULE PO (21:15)
[2024-07-28] MEDS: SODIUM CHLORIDE 0.9% IV 1,000 ML 100 ML IV CONT (21:16)
[2024-07-28 21:17] LABS: Phosphorus 4.9 mg/dL (2.5-4.5)
--- NOTE | 2024-07-28 21:37 | ADMGEN ---
This patient, Rosa Marie, was admitted to IMU Room 203-01. Patient/family oriented to hospital policies and general routines including ID bracelet, bed and alarms, visiting hours, pain management, procedures, bathroom and other care routines, personal items, smoking policy, room service/diet, and visiting hours. Information on how to activate the Rapid Response Team has been discussed. Patient/Family are encouraged to report perceived risks to care and to ask questions if they do not understand what they are told or what they should do.
--- NOTE | 2024-07-28 22:24 | PCRCNOTE ---
APNEA Link not conducted due to Pt being unstable and on BiPAP due to elevated CO2 levels post surgery.
[2024-07-28] MEDS: oxyCODONE HCL (*CRX) 5 MG TAB IR 10 MG PO (22:47)
[2024-07-29] VITALS (17 sets, daily range): BP systolic 124–167; BP diastolic 48–96; PULSE 42–84; RESP 13–23; TEMP 36–37.4; O2SAT 97–100; BMI 10.0; BMI 29.7
[2024-07-29 00:32] LABS: Alveolar/Arterial O2 Gradient 39.3 mmHg; Base Excess ABG -0.1 mEq/l (+/-2.0); Fractional Inspired Oxygen 30 %; Oxygen Content ABG 17.7 %vol (16.0-22.0); Oxygen Saturation ABG 98.1 % (95.0-100.0); Oxyhemoglobin 97.5 % THb (90.0-100.0); PO2 ABG 118.2 mmHg (80.0-100.0); PO2 FiO2 Ratio Arterial Blood 3.94 %; Total Hemoglobin 12.8 g/dL (12.0-18.0); pH ABG 7.351 (7.350-7.450)
[2024-07-29 00:33] LABS: Device BIPAP; Modified Allen's Test Pass; Site Drawn RIGHT RADIAL
[2024-07-29 00:34] LABS: Expiratory Pressure 5 cmH2O; Inspiratory Pressure 12 cmH2O
[2024-07-29] MEDS: ceFAZolin 1 GM/NS 50 ML 1 GM/50 ML BAG IVPB ×3 (02:14→18:01)
[2024-07-29] MEDS: ACETAMINOPHEN 500 MG TABLET 1000 MG PO ×4 (02:17→20:52)
[2024-07-29] MEDS: SODIUM CHLORIDE 0.9% IV 1,000 ML 100 ML IV CONT ×2 (07:34→18:00)
[2024-07-29] MEDS: oxyCODONE HCL (*CRX) 5 MG TAB IR PO (08:42)
[2024-07-29] MEDS: SENNOSIDES 8.6 MG TABLET PO ×2 (08:45→17:58)
[2024-07-29] MEDS: DOCUSATE SODIUM 100 MG CAPSULE PO ×2 (08:46→20:52)
[2024-07-29] MEDS: GABAPENTIN 400 MG CAPSULE PO ×3 (08:46→17:58)
[2024-07-29] MEDS: ALPRAZolam (*CRX) 0.25 MG TABLET PO ×2 (08:46→17:58)
[2024-07-29] MEDS: BACLOFEN 5 MG TABLET PO ×3 (08:46→17:58)
[2024-07-29] MEDS: POTASSIUM CHLORIDE 10 MEQ ER TABLET PO (08:46)
[2024-07-29] MEDS: SERTRALINE HCL 50 MG TABLET 100 MG PO (08:47)
[2024-07-29] MEDS: LOSARTAN POTASSIUM 100 MG TABLET PO (08:48)
[2024-07-29] MEDS: polyethylene glycoL 3350 17 GM POWD.PACK PO (08:49)
--- NOTE | 2024-07-29 12:52 | WPDNEUROSGPN ---
Progress Note: A&P Assessment and Plan (1) Prolonged emergence from general anesthesia: Qualifiers: Encounter type: initial encounter Qualified Code(s): T88.59XA - Other complications of anesthesia, initial encounter Code(s): T88.59XA - Other complications of anesthesia, initial encounter Status: Acute (2) Status post cervical arthrodesis: Code(s): Z98.1 - Arthrodesis status Status: Acute (3) Cervical myelopathy: Code(s): G95.9 - Disease of spinal cord, unspecified Status: Acute Plan -She clinically looks much better today with return to mental baseline. I do think her strength is improved compared to pre-op -Transfer to Med/Surg floor -Wean oxygen to off -Will keep hemovac drain today -PT/OT recommending return to SNF -Will consider removing mcneill catheter tomorrow -Possible discharge to SNF tomorrow vs Friday Subjective Date/time seen: 07/29/24 12:52 Interval history: She has been doing well off BiPAP since shift change. Currently on 2L oxygen. She has some pain in her shoulders but seems to be tolerating it well. Currently sitting up in chair. She did have a mcneill placed overnight for urinary retention. Review of Systems Review of Systems: All systems reviewed & are unremarkable except as noted in HPI and below Exam Narrative: Alert, oriented, conversive Motor strength seems improved compared to before surgery, 4+/5 in upper extremities and distal lower extremities, at least 3/5 strength in hip flexors bilaterally Sensation intact to light touch Dressing c/d/i HV 175cc out since surgery Objective Data Vital Signs Vital Signs: Vital Signs - 24 hr 07/28/24 14:19 07/28/24 14:35 07/28/24 14:50 Temperature 97.3 F L Pulse Rate 60 53 L 53 L Respiratory Rate 8 L 10 L 12 Blood Pressure 180/69 H 117/53 L 118/55 L Pulse Oximetry 100 100 100 Oxygen Delivery Simple Face Mask Simple Face Mask Simple Face Mask Oxygen Flow Rate 8 8 8 Fraction of Inspired Oxygen 07/28/24 15:05 07/28/24 15:20 07/28/24 15:35 Temperature Pulse Rate 55 L 63 59 L Respiratory Rate 10 L 12 10 L Blood Pressure 118/54 L 127/62 135/60 Pulse Oximetry 100 100 100 Oxygen Delivery Simple Face Mask Simple Face Mask Simple Face Mask Oxygen Flow Rate 8 8 8 Fraction of Inspired Oxygen 07/28/24 15:50 07/28/24 16:05 07/28/24 16:20 Temperature Pulse Rate 57 L 62 63 Respiratory Rate 12 12 12 Blood Pressure 142/63 H 144/83 H 163/69 H Pulse Oximetry 100 92 100 Oxygen Delivery Simple Face Mask Room Air Nasal Cannula Oxygen Flow Rate 6 2 Fraction of Inspired Oxygen 07/28/24 16:35 07/28/24 16:50 07/28/24 17:05 Temperature Pulse Rate 63 65 59 L Respiratory Rate 12 12 12 Blood Pressure 167/63 H 165/85 H 163/82 H Pulse Oximetry 100 99 99 Oxygen Delivery Nasal Cannula Nasal Cannula Nasal Cannula Oxygen Flow Rate 2 1 1 Fraction of Inspired Oxygen 07/28/24 17:20 07/28/24 17:35 07/28/24 17:50 Temperature 97.2 F L Pulse Rate 58 L 48 L 47 L Respiratory Rate 12 18 14 Blood Pressure 160/82 H 130/57 L 156/75 H Pulse Oximetry 95 97 100 Oxygen Delivery Nasal Cannula BiPAP BiPAP Oxygen Flow Rate 1 Fraction of Inspired Oxygen 30 30 07/28/24 18:05 07/28/24 18:20 07/28/24 18:35 Temperature Pulse Rate 46 L 49 L 46 L Respiratory Rate 14 16 15 Blood Pressure 145/70 H 143/53 H 140/64 Pulse Oximetry 100 99 100 Oxygen Delivery BiPAP BiPAP BiPAP Oxygen Flow Rate Fraction of Inspired Oxygen 30 30 30 07/28/24 18:50 07/28/24 19:00 07/28/24 19:30 Temperature Pulse Rate 50 L 48 L 45 L Respiratory Rate 14 14 16 Blood Pressure 135/88 139/60 118/65 Pulse Oximetry 100 100 100 Oxygen Delivery BiPAP BiPAP BiPAP Oxygen Flow Rate Fraction of Inspired Oxygen 30 30 30 07/28/24 20:00 07/28/24 20:24 07/28/24 17:34 Temperature Pulse Rate 44 L 46 L 53 L Respiratory Rate 12 12 13 Blood Pressure 135/80 146/66 H Pulse Oximetry 100 100 100 Oxygen Delivery BiPAP BiPAP BiPAP Oxygen Flow Rate Fraction of Inspired Oxygen 30 30 07/28/24 20:53 07/28/24 21:14 07/28/24 22:00 Temperature 97.6 F Pulse Rate 44 L 42 L 46 L Respiratory Rate 22 H Blood Pressure 131/55 L Pulse Oximetry 100 Oxygen Delivery Oxygen Flow Rate Fraction of Inspired Oxygen 07/28/24 22:00 07/28/24 22:00 07/29/24 00:23 Temperature Pulse Rate 50 L 46 L 42 L Respiratory Rate 14 14 19 Blood Pressure Pulse Oximetry 100 100 99 Oxygen Delivery BiPAP BiPAP BiPAP Oxygen Flow Rate Fraction of Inspired Oxygen 30 07/29/24 00:00 07/29/24 00:00 07/29/24 02:00 Temperature 97.5 F L Pulse Rate 46 L 45 L 55 L Respiratory Rate 23 H Blood Pressure 125/96 H Pulse Oximetry 99 Oxygen Delivery Oxygen Flow Rate Fraction of Inspired Oxygen 07/29/24 04:20 07/29/24 04:00 07/29/24 04:00 Temperature Pulse Rate 55 L 46 L 47 L Respiratory Rate 19 20 Blood Pressure 135/65 Pulse Oximetry 99 100 Oxygen Delivery BiPAP Oxygen Flow Rate Fraction of Inspired Oxygen 30 07/29/24 06:00 07/29/24 04:10 07/29/24 07:48 Temperature Pulse Rate 43 L 43 L Respiratory Rate 13 Blood Pressure Pulse Oximetry 100 Oxygen Delivery BiPAP Nasal Cannula Oxygen Flow Rate 2 Fraction of Inspired Oxygen 07/29/24 08:00 07/29/24 08:00 07/29/24 08:48 Temperature 99.4 F Pulse Rate 52 L 49 L 48 L Respiratory Rate 16 Blood Pressure 136/58 L Pulse Oximetry 98 Oxygen Delivery Oxygen Flow Rate Fraction of Inspired Oxygen 07/29/24 07:42 07/29/24 10:00 07/29/24 08:00 Temperature Pulse Rate 51 L 84 84 Respiratory Rate 14 16 Blood Pressure Pulse Oximetry 100 98 Oxygen Delivery BiPAP Nasal Cannula Oxygen Flow Rate 2 Fraction of Inspired Oxygen 07/29/24 11:44 07/29/24 12:00 Temperature 98.4 F Pulse Rate 76 81 Respiratory Rate 16 Blood Pressure 124/48 L Pulse Oximetry 99 Oxygen Delivery Oxygen Flow Rate Fraction of Inspired Oxygen Intake/Output Intake/Output: Intake & Output 07/26/24 07/27/24 07/28/24 07/29/24 23:59 23:59 23:59 23:59 Intake Total 750 1940 Output Total 1025 Balance 750 915 Meds/Results Medications: Active Medications Generic Name Dose Route Start Last Admin Trade Name Freq PRN Reason Stop Dose Admin Acetaminophen 1,000 mg 07/28/24 14:15 07/29/24 08:41 Acetaminophen 500 Mg Tablet PO 1,000 mg Q6H KELLY Administration Al Hydrox/Mg Hydrox/Simethicone 20 ml 07/28/24 14:11 Mag Hydrox/Al Hydrox/Simeth 30 Ml Udc PO Q4H PRN Indigestion/Heartburn Alprazolam 0.25 mg 07/28/24 17:00 07/29/24 08:46 Alprazolam (*Crx) 0.25 Mg Tablet PO 0.25 mg BID KELLY Administration Atorvastatin Calcium 10 mg 07/30/24 09:00 Atorvastatin 10 Mg Tablet PO Q48H KELLY Baclofen 5 mg 07/28/24 17:00 07/29/24 12:07 Baclofen 5 Mg Tablet PO 5 mg TID KELLY Administration Bisacodyl 10 mg 07/28/24 14:14 Bisacodyl 10 Mg Suppository RECTAL DAILY PRN Constipation Carvedilol 6.25 mg 07/28/24 21:00 07/29/24 08:48 Carvedilol 6.25 Mg Tablet PO Not Given Q12HR KELLY Cyclobenzaprine HCl 10 mg 07/28/24 14:11 Cyclobenzaprine Hcl 10 Mg Tablet PO TID PRN Muscle Spasms Docusate Sodium 100 mg 07/28/24 21:00 07/29/24 08:46 Docusate Sodium 100 Mg Capsule PO 100 mg Q12HR KELLY Administration Gabapentin 400 mg 07/28/24 17:00 07/29/24 12:07 Gabapentin 400 Mg Capsule PO 400 mg TID KELLY Administration Cefazolin Sodium 1 gm in 50 mls @ 100 mls/hr 07/28/24 18:00 07/29/24 12:07 Ancef 1 Gm/Ns 50 Ml IVPB 100 mls/hr Q8H KELLY Administration Sodium Chloride 1,000 mls @ 100 mls/hr 07/28/24 14:15 07/29/24 12:05 Normal Saline Iv IV CONT Not Given .Q10H KELLY Losartan Potassium 100 mg 07/29/24 09:00 07/29/24 08:48 Losartan Potassium 100 Mg Tablet PO 100 mg DAILY KELLY Administration Magnesium Citrate 300 ml 07/28/24 14:14 Magnesium Citrate 300 Ml Btl PO DAILY PRN Constipation Magnesium Hydroxide 30 ml 07/28/24 14:14 Magnesium Hydroxide Susp 30 Ml Udc PO HS PRN Constipation Morphine Sulfate 2 mg 07/28/24 14:11 Morphine Sulfate (*Crx) 2 Mg/Ml Inj IV PUSH Q2H PRN Breakthrough pain Ondansetron HCl 4 mg 07/28/24 14:11 Ondansetron Inj 4 Mg/2 Ml Vial IV PUSH Q8H PRN Nausea And Vomiting Oxycodone HCl 10 mg 07/28/24 14:11 07/28/24 22:47 Oxycodone Hcl (*Crx) 5 Mg Tab Ir PO 10 mg Q4H PRN Administration Pain Rated 7-10 Oxycodone HCl 5 mg 07/28/24 14:11 07/29/24 08:42 Oxycodone Hcl (*Crx) 5 Mg Tab Ir PO 5 mg Q4H PRN Administration Pain Rated 4-6 Polyethylene Glycol 17 gm 07/29/24 09:00 07/29/24 08:49 Polyethylene Glycol 3350 17 Gm Powd.Pack PO 17 gm DAILY KELLY Administration Potassium Chloride 10 meq 07/29/24 09:00 07/29/24 08:46 Potassium Chloride 10 Meq Er Tablet PO 10 meq DAILY KELLY Administration Ropinirole HCl 0.25 mg 07/28/24 21:00 07/28/24 21:08 Ropinirole Hcl 0.25 Mg Tablet PO 0.25 mg HS KELLY Administration Senna 8.6 mg 07/28/24 17:00 07/29/24 08:45 Sennosides 8.6 Mg Tablet PO 8.6 mg BID KELLY Administration Senna/Docusate Sodium 1 tab 07/28/24 14:11 Senna/Docusate Sodium Tablet PO HS PRN Constipation Sertraline HCl 100 mg 07/29/24 09:00 07/29/24 08:47 Sertraline Hcl 50 Mg Tablet PO 100 mg QAM KELLY Administration Radiology Results: ITS Impressions Fluoroscopy 07/28/24 14:06 IMPRESSION: 1. Posterior fusion procedure from C3 to C7. Chest X-Ray 07/28/24 21:47 IMPRESSION: No acute cardiopulmonary process. Labs Labs: Laboratory Results - last 24 hr 07/28/24 07/28/24 07/28/24 15:35 17:14 18:49 Puncture Site Right radial Left radial ABG pH 7.272 L* 7.306 L ABG pCO2 63.6 H* 53.3 H ABG pO2 69.6 L 99.0 ABG PO2/FiO2 Ratio 2.90 3.30 ABG HCO3 28.7 H 26.0 ABG O2 Saturation 91.2 L 96.8 ABG O2 Content 19.4 20.0 ABG Base Excess 0.1 -1.2 A-a Gradient 25.8 52.3 Oxyhemoglobin 91.8 96.3 Total Hemoglobin 15.0 14.7 O2 Delivery Device Nasal cannula Bipap O2 Liters/Min 1.0 Not Reportable FiO2 24 30 Expiratory Pressure 5 Inspiratory Pressure 12 POC Capillary Glucose 112 H Phosphorus 07/28/24 07/29/24 21:02 00:15 Puncture Site Right radial ABG pH 7.351 ABG pCO2 48.0 H ABG pO2 118.2 H ABG PO2/FiO2 Ratio 3.94 ABG HCO3 26.0 ABG O2 Saturation 98.1 ABG O2 Content 17.7 ABG Base Excess -0.1 A-a Gradient 39.3 Oxyhemoglobin 97.5 Total Hemoglobin 12.8 O2 Delivery Device Bipap O2 Liters/Min Not Reportable FiO2 30 Expiratory Pressure 5 Inspiratory Pressure 12 POC Capillary Glucose Phosphorus 4.9 H
--- NOTE | 2024-07-29 15:14 | P.PNIM_ITS ---
Progress Note: A&P Assessment and Plan (1) Prolonged emergence from general anesthesia: Qualifiers: Encounter type: initial encounter Qualified Code(s): T88.59XA - Other complications of anesthesia, initial encounter Code(s): T88.59XA - Other complications of anesthesia, initial encounter Status: Acute (2) Status post cervical arthrodesis: Code(s): Z98.1 - Arthrodesis status Status: Acute (3) Hypertension: Qualifiers: Hypertension type: primary hypertension Qualified Code(s): I10 - Essential (primary) hypertension Code(s): I10 - Essential (primary) hypertension Status: Chronic Plan Rosa Marie is a 74 year old female who presented here for management of her cervical spondylolisthesis. Per neurosurgery office visit note on 07/15/2024, the patient has been reporting neck pain for at least the past 6 months with radiation into her shoulders. She has also been experiencing progressive weakness in her hands, numbness in her bilateral upper extremities, difficulty walking, urinary urgency and frequency. Weakness in her hands is causing her difficulty in gripping objects and utilizing utensils to feed herself. Patient was also transferred to a long-term in the past year due to rib due stability, has been unable to walk since February. Given progression of symptoms, the patient elected to move forward with surgical management. The patient underwent a posterior cervical decompression and fusion C3-6. Postoperatively, patient was slow to recover. ABG was obtained which showed pH of 7.272, CO2 63.6, O2 69.6, HC03 28.7. patient was started on BiPAP with improvement in ABG. BiPAP has been removed. Will do apnea link screening tonight. And C6 PT OT incentive spirometry Hypertension continue home medication Diet: Regular GI Prophylaxis: Not currently indicated DVT Prophylaxis: SCDs Lines: Peripheral Code Status: Full code Subjective Date/time seen: 07/29/24 15:14 Interval history: no overnight events. BiPAP was removed earlier today. Denies any new complaints. On 2 L oxygen via nasal cannula. Denies any shortness of breath. No chest pain. Review of Systems Review of Systems: All systems reviewed & are unremarkable except as noted in HPI and below Exam Narrative: GENERAL: Thin built and in no acute distress. HEAD: Normocephalic, atraumatic. EYES: PERRLA and EOMI. ENT: Nares clear, no rhinorrhea or epistaxis. Mucous membranes moist. NECK: Supple. CHEST: Clear to auscultation. No respiratory distress. HEART: Regular rate and rhythm. No murmur heard. Normal peripheral pulses. ABDOMEN: Soft, nontender, nondistended, normal active bowel sounds. EXTREMITIES: Normal range of motion. No edema. SKIN: Warm, dry, no rash. NEURO: No focal deficits. Alert and oriented x3. PSYCH: Normal mood and affect. Objective Data Vital Signs Vital Signs: Vital Signs - 24 hr 07/28/24 15:20 07/28/24 15:35 07/28/24 15:50 Temperature Pulse Rate 63 59 L 57 L Respiratory Rate 12 10 L 12 Blood Pressure 127/62 135/60 142/63 H Pulse Oximetry 100 100 100 Oxygen Delivery Simple Face Mask Simple Face Mask Simple Face Mask Oxygen Flow Rate 8 8 6 Fraction of Inspired Oxygen 07/28/24 16:05 07/28/24 16:20 07/28/24 16:35 Temperature Pulse Rate 62 63 63 Respiratory Rate 12 12 12 Blood Pressure 144/83 H 163/69 H 167/63 H Pulse Oximetry 92 100 100 Oxygen Delivery Room Air Nasal Cannula Nasal Cannula Oxygen Flow Rate 2 2 Fraction of Inspired Oxygen 07/28/24 16:50 07/28/24 17:05 07/28/24 17:20 Temperature Pulse Rate 65 59 L 58 L Respiratory Rate 12 12 12 Blood Pressure 165/85 H 163/82 H 160/82 H Pulse Oximetry 99 99 95 Oxygen Delivery Nasal Cannula Nasal Cannula Nasal Cannula Oxygen Flow Rate 1 1 1 Fraction of Inspired Oxygen 07/28/24 17:35 07/28/24 17:50 07/28/24 18:05 Temperature 97.2 F L Pulse Rate 48 L 47 L 46 L Respiratory Rate 18 14 14 Blood Pressure 130/57 L 156/75 H 145/70 H Pulse Oximetry 97 100 100 Oxygen Delivery BiPAP BiPAP BiPAP Oxygen Flow Rate Fraction of Inspired Oxygen 30 30 30 07/28/24 18:20 07/28/24 18:35 07/28/24 18:50 Temperature Pulse Rate 49 L 46 L 50 L Respiratory Rate 16 15 14 Blood Pressure 143/53 H 140/64 135/88 Pulse Oximetry 99 100 100 Oxygen Delivery BiPAP BiPAP BiPAP Oxygen Flow Rate Fraction of Inspired Oxygen 30 30 30 07/28/24 19:00 07/28/24 19:30 07/28/24 20:00 Temperature Pulse Rate 48 L 45 L 44 L Respiratory Rate 14 16 12 Blood Pressure 139/60 118/65 135/80 Pulse Oximetry 100 100 100 Oxygen Delivery BiPAP BiPAP BiPAP Oxygen Flow Rate Fraction of Inspired Oxygen 30 30 30 07/28/24 20:24 07/28/24 17:34 07/28/24 20:53 Temperature 97.6 F Pulse Rate 46 L 53 L 44 L Respiratory Rate 12 13 22 H Blood Pressure 146/66 H 131/55 L Pulse Oximetry 100 100 100 Oxygen Delivery BiPAP BiPAP Oxygen Flow Rate Fraction of Inspired Oxygen 30 07/28/24 21:14 07/28/24 22:00 07/28/24 22:00 Temperature Pulse Rate 42 L 46 L 50 L Respiratory Rate 14 Blood Pressure Pulse Oximetry 100 Oxygen Delivery BiPAP Oxygen Flow Rate Fraction of Inspired Oxygen 07/28/24 22:00 07/29/24 00:23 07/29/24 00:00 Temperature 97.5 F L Pulse Rate 46 L 42 L 46 L Respiratory Rate 14 19 23 H Blood Pressure 125/96 H Pulse Oximetry 100 99 99 Oxygen Delivery BiPAP BiPAP Oxygen Flow Rate Fraction of Inspired Oxygen 30 07/29/24 00:00 07/29/24 02:00 07/29/24 04:20 Temperature Pulse Rate 45 L 55 L 55 L Respiratory Rate 19 Blood Pressure Pulse Oximetry 99 Oxygen Delivery BiPAP Oxygen Flow Rate Fraction of Inspired Oxygen 30 07/29/24 04:00 07/29/24 04:00 07/29/24 06:00 Temperature Pulse Rate 46 L 47 L 43 L Respiratory Rate 20 Blood Pressure 135/65 Pulse Oximetry 100 Oxygen Delivery Oxygen Flow Rate Fraction of Inspired Oxygen 07/29/24 04:10 07/29/24 07:48 07/29/24 08:00 Temperature 99.4 F Pulse Rate 43 L 52 L Respiratory Rate 13 16 Blood Pressure 136/58 L Pulse Oximetry 100 98 Oxygen Delivery BiPAP Nasal Cannula Oxygen Flow Rate 2 Fraction of Inspired Oxygen 07/29/24 08:00 07/29/24 08:48 07/29/24 07:42 Temperature Pulse Rate 49 L 48 L 51 L Respiratory Rate 14 Blood Pressure Pulse Oximetry 100 Oxygen Delivery BiPAP Oxygen Flow Rate Fraction of Inspired Oxygen 07/29/24 10:00 07/29/24 08:00 07/29/24 11:44 Temperature 98.4 F Pulse Rate 84 84 76 Respiratory Rate 16 16 Blood Pressure 124/48 L Pulse Oximetry 98 99 Oxygen Delivery Nasal Cannula Oxygen Flow Rate 2 Fraction of Inspired Oxygen 07/29/24 12:00 07/29/24 12:00 Temperature Pulse Rate 81 84 Respiratory Rate 16 Blood Pressure Pulse Oximetry 98 Oxygen Delivery Nasal Cannula Oxygen Flow Rate 2 Fraction of Inspired Oxygen Intake/Output Intake/Output: Intake & Output 07/26/24 07/27/24 07/28/24 07/29/24 23:59 23:59 23:59 23:59 Intake Total 750 1990 Output Total 1025 Balance 750 965 Meds/Results Medications: Active Medications Generic Name Dose Route Start Last Admin Trade Name Freq PRN Reason Stop Dose Admin Acetaminophen 1,000 mg 07/28/24 14:15 07/29/24 13:59 Acetaminophen 500 Mg Tablet PO 1,000 mg Q6H KELLY Administration Al Hydrox/Mg Hydrox/Simethicone 20 ml 07/28/24 14:11 Mag Hydrox/Al Hydrox/Simeth 30 Ml Udc PO Q4H PRN Indigestion/Heartburn Alprazolam 0.25 mg 07/28/24 17:00 07/29/24 08:46 Alprazolam (*Crx) 0.25 Mg Tablet PO 0.25 mg BID KELLY Administration Atorvastatin Calcium 10 mg 07/30/24 09:00 Atorvastatin 10 Mg Tablet PO Q48H KELLY Baclofen 5 mg 07/28/24 17:00 07/29/24 12:07 Baclofen 5 Mg Tablet PO 5 mg TID KELLY Administration Bisacodyl 10 mg 07/28/24 14:14 Bisacodyl 10 Mg Suppository RECTAL DAILY PRN Constipation Carvedilol 6.25 mg 07/28/24 21:00 07/29/24 08:48 Carvedilol 6.25 Mg Tablet PO Not Given Q12HR KELLY Cyclobenzaprine HCl 10 mg 07/28/24 14:11 Cyclobenzaprine Hcl 10 Mg Tablet PO TID PRN Muscle Spasms Docusate Sodium 100 mg 07/28/24 21:00 07/29/24 08:46 Docusate Sodium 100 Mg Capsule PO 100 mg Q12HR KELLY Administration Gabapentin 400 mg 07/28/24 17:00 07/29/24 12:07 Gabapentin 400 Mg Capsule PO 400 mg TID KELLY Administration Cefazolin Sodium 1 gm in 50 mls @ 100 mls/hr 07/28/24 18:00 07/29/24 12:40 Ancef 1 Gm/Ns 50 Ml IVPB Infused Q8H KELLY Infusion Sodium Chloride 1,000 mls @ 100 mls/hr 07/28/24 14:15 07/29/24 12:05 Normal Saline Iv IV CONT Not Given .Q10H KELLY Losartan Potassium 100 mg 07/29/24 09:00 07/29/24 08:48 Losartan Potassium 100 Mg Tablet PO 100 mg DAILY KELLY Administration Magnesium Citrate 300 ml 07/28/24 14:14 Magnesium Citrate 300 Ml Btl PO DAILY PRN Constipation Magnesium Hydroxide 30 ml 07/28/24 14:14 Magnesium Hydroxide Susp 30 Ml Udc PO HS PRN Constipation Morphine Sulfate 2 mg 07/28/24 14:11 Morphine Sulfate (*Crx) 2 Mg/Ml Inj IV PUSH Q2H PRN Breakthrough pain Ondansetron HCl 4 mg 07/28/24 14:11 Ondansetron Inj 4 Mg/2 Ml Vial IV PUSH Q8H PRN Nausea And Vomiting Oxycodone HCl 10 mg 07/28/24 14:11 07/28/24 22:47 Oxycodone Hcl (*Crx) 5 Mg Tab Ir PO 10 mg Q4H PRN Administration Pain Rated 7-10 Oxycodone HCl 5 mg 07/28/24 14:11 07/29/24 08:42 Oxycodone Hcl (*Crx) 5 Mg Tab Ir PO 5 mg Q4H PRN Administration Pain Rated 4-6 Polyethylene Glycol 17 gm 07/29/24 09:00 07/29/24 08:49 Polyethylene Glycol 3350 17 Gm Powd.Pack PO 17 gm DAILY KELLY Administration Potassium Chloride 10 meq 07/29/24 09:00 07/29/24 08:46 Potassium Chloride 10 Meq Er Tablet PO 10 meq DAILY KELLY Administration Ropinirole HCl 0.25 mg 07/28/24 21:00 07/28/24 21:08 Ropinirole Hcl 0.25 Mg Tablet PO 0.25 mg HS KELLY Administration Senna 8.6 mg 07/28/24 17:00 07/29/24 08:45 Sennosides 8.6 Mg Tablet PO 8.6 mg BID KELLY Administration Senna/Docusate Sodium 1 tab 07/28/24 14:11 Senna/Docusate Sodium Tablet PO HS PRN Constipation Sertraline HCl 100 mg 07/29/24 09:00 07/29/24 08:47 Sertraline Hcl 50 Mg Tablet PO 100 mg QAM KELLY Administration Radiology Results: ITS Impressions Fluoroscopy 07/28/24 14:06 IMPRESSION: 1. Posterior fusion procedure from C3 to C7. Chest X-Ray 07/28/24 21:47 IMPRESSION: No acute cardiopulmonary process. Labs Labs: Laboratory Results - last 24 hr 07/28/24 07/28/24 07/28/24 15:35 17:14 18:49 Puncture Site Right radial Left radial ABG pH 7.272 L* 7.306 L ABG pCO2 63.6 H* 53.3 H ABG pO2 69.6 L 99.0 ABG PO2/FiO2 Ratio 2.90 3.30 ABG HCO3 28.7 H 26.0 ABG O2 Saturation 91.2 L 96.8 ABG O2 Content 19.4 20.0 ABG Base Excess 0.1 -1.2 A-a Gradient 25.8 52.3 Oxyhemoglobin 91.8 96.3 Total Hemoglobin 15.0 14.7 O2 Delivery Device Nasal cannula Bipap O2 Liters/Min 1.0 Not Reportable FiO2 24 30 Expiratory Pressure 5 Inspiratory Pressure 12 POC Capillary Glucose 112 H Phosphorus 07/28/24 07/29/24 21:02 00:15 Puncture Site Right radial ABG pH 7.351 ABG pCO2 48.0 H ABG pO2 118.2 H ABG PO2/FiO2 Ratio 3.94 ABG HCO3 26.0 ABG O2 Saturation 98.1 ABG O2 Content 17.7 ABG Base Excess -0.1 A-a Gradient 39.3 Oxyhemoglobin 97.5 Total Hemoglobin 12.8 O2 Delivery Device Bipap O2 Liters/Min Not Reportable FiO2 30 Expiratory Pressure 5 Inspiratory Pressure 12 POC Capillary Glucose Phosphorus 4.9 H
[2024-07-29] MEDS: rOPINIRole HCL 0.25 MG TABLET PO (20:52)
[2024-07-29] MEDS: oxyCODONE HCL (*CRX) 5 MG TAB IR 10 MG PO (20:52)
[2024-07-29] MEDS: carvediloL 6.25 MG TABLET PO (20:53)
--- NOTE | 2024-07-29 23:27 | PC.NURSE ---
This patient, Rosa Marie, was transferred to [facility] on 07/29/24 at 2305 Personal belongings sent with patient. Report given to ANGELICA Modi. Appropriate documentation sent with patient.
[2024-07-30] MEDS: ACETAMINOPHEN 500 MG TABLET 1000 MG PO ×3 (01:25→13:27)
[2024-07-30] MEDS: ceFAZolin 1 GM/NS 50 ML 1 GM/50 ML BAG IVPB ×2 (01:25→10:56)
[2024-07-30] MEDS: oxyCODONE HCL (*CRX) 5 MG TAB IR 10 MG PO (03:24)
[2024-07-30] MEDS: SODIUM CHLORIDE 0.9% IV 1,000 ML 100 ML IV CONT (03:50)
[2024-07-30 04:45] VITALS: BP 143/55; PULSE 61; RESP 20; TEMP 36.2; O2SAT 98
[2024-07-30 06:25] LABS: Basophils Absolute Auto 0.1 K/mm3 (0.0-0.1); Basophils Percent Auto 0.7 % (0.2-1.2); Eosinophils Absolute Auto 0.2 K/mm3 (0-0.3); Eosinophils Percent Auto 1.6 % (0-4.4); Hematocrit 36.8 % (37.0-47.0); Hemoglobin 11.9 g/dL (12.0-15.0); Immature Granulocyte Absolute 0.02 K/mm3 (0.00-0.031); Immature Granulocyte Percent A 0.2 % (0-0.5); Lymphocytes Absolute Auto 2.36 K/mm3 (0.9-3.2); Lymphocytes Percent Auto 20.8 % (18.3-44.2); Mean Corpuscular HGB Conc 32.3 g/dl (32-36); Mean Corpuscular Hemoglobin 30.9 pg (26-34); Mean Corpuscular Volume 95.6 fl (80-100); Mean Platelet Volume 9.7 fl (7.4-10.4); Monocytes Absolute Auto 1.2 K/mm3 (0.1-0.6); Monocytes Percent Auto 10.9 % (2.6-8.5); Neutrophils Absolute Auto 7.5 K/mm3 (1.3-6.7); Neutrophils Percent Auto 65.8 % (45.5-73.1); Platelet Count Result 216 k/mm3 (150-375); Red Blood Count 3.85 M/mm3 (4.2-5.4); Red Cell Distribution Width 13.1 % (11.5-14.5); White Blood Count 11.4 K/mm3 (4.5-10.0)
[2024-07-30 06:37] LABS: Alanine Aminotransferase 9 U/L (6-35); Albumin Level 3.1 g/dL (3.5-5.1); Alkaline Phosphatase 88 U/L (38-126); Anion Gap 4 mmol/L (4-12); Aspartate Amino Transferase 19 U/L (14-36); Bilirubin,Total 0.6 mg/dL (0.2-1.3); Blood Urea Nitrogen 7 mg/dL (7-17); Calcium 8.3 mg/dL (8.4-10.2); Carbon Dioxide 29 mmol/L (22-30); Chloride 105 mmol/L (98-107); Estimated CRCL calculation 83 ml/min; Estimated Glomerular Filt Rate > 60; Glucose 90 mg/dL (65-110); Magnesium 1.8 mg/dL (1.6-2.3); Sodium 138 mmol/L (137-145)
[2024-07-30] MEDS: polyethylene glycoL 3350 17 GM POWD.PACK PO (08:23)
[2024-07-30] MEDS: DOCUSATE SODIUM 100 MG CAPSULE PO (08:23)
[2024-07-30] MEDS: SERTRALINE HCL 50 MG TABLET 100 MG PO (08:23)
[2024-07-30] MEDS: GABAPENTIN 400 MG CAPSULE PO ×3 (08:24→17:18)
[2024-07-30] MEDS: POTASSIUM CHLORIDE 10 MEQ ER TABLET PO (08:24)
[2024-07-30] MEDS: ATORVASTATIN 10 MG TABLET PO (08:24)
[2024-07-30] MEDS: BACLOFEN 5 MG TABLET PO ×3 (08:25→17:17)
[2024-07-30 08:26] VITALS: PULSE 62
[2024-07-30] MEDS: ALPRAZolam (*CRX) 0.25 MG TABLET PO ×2 (08:26→17:16)
[2024-07-30] MEDS: carvediloL 6.25 MG TABLET PO (08:26)
[2024-07-30] MEDS: LOSARTAN POTASSIUM 100 MG TABLET PO (08:26)
[2024-07-30] MEDS: SENNOSIDES 8.6 MG TABLET PO ×2 (08:31→17:17)
[2024-07-30] MEDS: POTASSIUM CHLORIDE 20 MEQ ER TABLET 40 MEQ PO (08:36)
--- NOTE | 2024-07-30 09:37 | P.PNNEUSUR_ITS ---
Progress Note: A&P Assessment and Plan (1) Status post cervical arthrodesis: Code(s): Z98.1 - Arthrodesis status Status: Acute (2) Cervical myelopathy: Code(s): G95.9 - Disease of spinal cord, unspecified Status: Acute Plan 74-year-old female status post posterior cervical decompression and fusion from C3-7 for cervical myelopathy who is now postop day 1. The drain only put out 30 mL so we can take out the drain we can also remove her Servin and to avoid trial she should work with Physical therapy and Occupational therapy today and we can work towards discharge. I have discussed this plan with Dr. Menezes her surgeon Subjective Date/time seen: 07/30/24 09:37 Interval history: The patient is doing well she just had breakfast and tolerated well as she has not been out of bed this morning. Otherwise she notes that the right side of her neck is sore but otherwise does not have any significant complaints. Exam Narrative: She is awake alert she is in no acute distress she moves her bilateral upper extremities without any focal neurologic deficit specifically I tested her labor delivery specialist strength biceps triceps and deltoid strength. Initially she did not raise her right deltoid up I asked her to raise both shoulders however upon examining the individual extremity she was able lift her right arm up above her head. She does appear to have some generalized weakness in her labor delivery specialist. She does have bilateral Ami's. Her incision is clean dry and intact with sutures intact. Objective Data Vital Signs Vital Signs: Vital Signs - 24 hr 07/29/24 10:00 07/29/24 11:44 07/29/24 12:00 Temperature 98.4 F Pulse Rate 84 76 81 Respiratory Rate 16 Blood Pressure 124/48 L Pulse Oximetry 99 Oxygen Delivery Oxygen Flow Rate 07/29/24 12:00 07/29/24 15:34 07/29/24 20:00 Temperature 98.2 F Pulse Rate 84 64 64 Respiratory Rate 16 18 18 Blood Pressure 167/61 H Pulse Oximetry 98 97 97 Oxygen Delivery Nasal Cannula Nasal Cannula Oxygen Flow Rate 2 2 07/29/24 20:53 07/29/24 23:57 07/30/24 04:45 Temperature 96.8 F L 97.1 F L Pulse Rate 61 62 61 Respiratory Rate 16 20 Blood Pressure 132/52 L 143/55 H Pulse Oximetry 98 98 Oxygen Delivery Oxygen Flow Rate 07/30/24 08:26 Temperature Pulse Rate 62 Respiratory Rate Blood Pressure Pulse Oximetry Oxygen Delivery Oxygen Flow Rate Intake/Output Intake/Output: Intake & Output 07/27/24 07/28/24 07/29/24 07/30/24 23:59 23:59 23:59 23:59 Intake Total 750 3280 1351.3 Output Total 2425 2330 Balance 750 855 -978.7 Meds/Results Medications: Active Medications Generic Name Dose Route Start Last Admin Trade Name Freq PRN Reason Stop Dose Admin Acetaminophen 1,000 mg 07/28/24 14:15 07/30/24 08:26 Acetaminophen 500 Mg Tablet PO 1,000 mg Q6H KELLY Administration Al Hydrox/Mg Hydrox/Simethicone 20 ml 07/28/24 14:11 Mag Hydrox/Al Hydrox/Simeth 30 Ml Udc PO Q4H PRN Indigestion/Heartburn Alprazolam 0.25 mg 07/28/24 17:00 07/30/24 08:26 Alprazolam (*Crx) 0.25 Mg Tablet PO 0.25 mg BID KELLY Administration Atorvastatin Calcium 10 mg 07/30/24 09:00 07/30/24 08:24 Atorvastatin 10 Mg Tablet PO 10 mg Q48H KELLY Administration Baclofen 5 mg 07/28/24 17:00 07/30/24 08:25 Baclofen 5 Mg Tablet PO 5 mg TID KELLY Administration Bisacodyl 10 mg 07/28/24 14:14 Bisacodyl 10 Mg Suppository RECTAL DAILY PRN Constipation Carvedilol 6.25 mg 07/28/24 21:00 07/30/24 08:26 Carvedilol 6.25 Mg Tablet PO 6.25 mg Q12HR KELLY Administration Cyclobenzaprine HCl 10 mg 07/28/24 14:11 Cyclobenzaprine Hcl 10 Mg Tablet PO TID PRN Muscle Spasms Docusate Sodium 100 mg 07/28/24 21:00 07/30/24 08:23 Docusate Sodium 100 Mg Capsule PO 100 mg Q12HR KELLY Administration Gabapentin 400 mg 07/28/24 17:00 07/30/24 08:24 Gabapentin 400 Mg Capsule PO 400 mg TID KELLY Administration Cefazolin Sodium 1 gm in 50 mls @ 100 mls/hr 07/28/24 18:00 07/30/24 01:55 Ancef 1 Gm/Ns 50 Ml IVPB Infused Q8H KELLY Infusion Sodium Chloride 1,000 mls @ 100 mls/hr 07/28/24 14:15 07/30/24 03:50 Normal Saline Iv IV CONT 100 mls/hr .Q10H KELLY Administration Losartan Potassium 100 mg 07/29/24 09:00 07/30/24 08:26 Losartan Potassium 100 Mg Tablet PO 100 mg DAILY KELLY Administration Magnesium Citrate 300 ml 07/28/24 14:14 Magnesium Citrate 300 Ml Btl PO DAILY PRN Constipation Magnesium Hydroxide 30 ml 07/28/24 14:14 Magnesium Hydroxide Susp 30 Ml Udc PO HS PRN Constipation Morphine Sulfate 2 mg 07/28/24 14:11 Morphine Sulfate (*Crx) 2 Mg/Ml Inj IV PUSH Q2H PRN Breakthrough pain Ondansetron HCl 4 mg 07/28/24 14:11 Ondansetron Inj 4 Mg/2 Ml Vial IV PUSH Q8H PRN Nausea And Vomiting Oxycodone HCl 10 mg 07/28/24 14:11 07/30/24 03:24 Oxycodone Hcl (*Crx) 5 Mg Tab Ir PO 10 mg Q4H PRN Administration Pain Rated 7-10 Oxycodone HCl 5 mg 07/28/24 14:11 07/29/24 08:42 Oxycodone Hcl (*Crx) 5 Mg Tab Ir PO 5 mg Q4H PRN Administration Pain Rated 4-6 Polyethylene Glycol 17 gm 07/29/24 09:00 07/30/24 08:23 Polyethylene Glycol 3350 17 Gm Powd.Pack PO 17 gm DAILY KELLY Administration Potassium Chloride 10 meq 07/29/24 09:00 07/30/24 08:24 Potassium Chloride 10 Meq Er Tablet PO 10 meq DAILY KELLY Administration Ropinirole HCl 0.25 mg 07/28/24 21:00 07/29/24 20:52 Ropinirole Hcl 0.25 Mg Tablet PO 0.25 mg HS KELLY Administration Senna 8.6 mg 07/28/24 17:00 07/30/24 08:31 Sennosides 8.6 Mg Tablet PO 8.6 mg BID KELLY Administration Senna/Docusate Sodium 1 tab 07/28/24 14:11 Senna/Docusate Sodium Tablet PO HS PRN Constipation Sertraline HCl 100 mg 07/29/24 09:00 07/30/24 08:23 Sertraline Hcl 50 Mg Tablet PO 100 mg QAM KELLY Administration Radiology Results: ITS Impressions Fluoroscopy 07/28/24 14:06 IMPRESSION: 1. Posterior fusion procedure from C3 to C7. Chest X-Ray 07/28/24 21:47 IMPRESSION: No acute cardiopulmonary process. Labs Labs: Laboratory Results - last 24 hr 07/30/24 06:16 WBC 11.4 H RBC 3.85 L Hgb 11.9 L Hct 36.8 L MCV 95.6 MCH 30.9 MCHC 32.3 RDW 13.1 Plt Count 216 MPV 9.7 Immature Gran % (Auto) 0.2 Neut % (Auto) 65.8 Lymph % (Auto) 20.8 [facility] % (Auto) 10.9 H Eos % (Auto) 1.6 Baso % (Auto) 0.7 Lymph # (Auto) 2.36 [facility] # (Auto) 1.2 H Eos # (Auto) 0.2 Baso # (Auto) 0.1 Abs Immat Gran (auto) 0.02 Absolute Neuts (auto) 7.5 H Absolute Nucleated RBC 0.000 Nucleated RBC % 0.0 Sodium 138 Potassium 3.0 L Chloride 105 Carbon Dioxide 29 Anion Gap 4 BUN 7 Creatinine 0.40 L Estim Creat Clear Calc 83 Estimated GFR > 60 Glucose 90 Calcium 8.3 L Magnesium 1.8 Total Bilirubin 0.6 AST 19 ALT 9 Alkaline Phosphatase 88 Total Protein 6.0 L Albumin 3.1 L
--- NOTE | 2024-07-30 11:02 | PCPTNOTE ---
PT present for transfer from [facility]. Goal updated in plan of care.
--- NOTE | 2024-07-30 12:06 | PM.IMPN ---
Progress Note: A&P Assessment and Plan (1) Prolonged emergence from general anesthesia: Qualifiers: Encounter type: initial encounter Qualified Code(s): T88.59XA - Other complications of anesthesia, initial encounter Code(s): T88.59XA - Other complications of anesthesia, initial encounter Status: Acute (2) Status post cervical arthrodesis: Code(s): Z98.1 - Arthrodesis status Status: Acute (3) Hypertension: Qualifiers: Hypertension type: primary hypertension Qualified Code(s): I10 - Essential (primary) hypertension Code(s): I10 - Essential (primary) hypertension Status: Chronic Plan Rosa Marie is a 74 year old female who presented here for management of her cervical spondylolisthesis. Per neurosurgery office visit note on 07/15/2024, the patient has been reporting neck pain for at least the past 6 months with radiation into her shoulders. She has also been experiencing progressive weakness in her hands, numbness in her bilateral upper extremities, difficulty walking, urinary urgency and frequency. Weakness in her hands is causing her difficulty in gripping objects and utilizing utensils to feed herself. Patient was also transferred to a [place] [facility] in the past year due to rib due stability, has been unable to walk since February. Given progression of symptoms, the patient elected to move forward with surgical management. The patient underwent a posterior cervical decompression and fusion C3-6. Postoperatively, patient was slow to recover. ABG was obtained which showed pH of 7.272, CO2 63.6, O2 69.6, HC03 28.7. patient was started on BiPAP with improvement in ABG. BiPAP has been removed. Apnea link with elevated AHI suggestive of possible sleep apnea. She will need home sleep study once he gets discharged. Analgesics, PT OT incentive spirometry Hypokalemia replace Hypertension continue home medication Diet: Regular GI Prophylaxis: Not currently indicated DVT Prophylaxis: SCDs Lines: Peripheral Code Status: Full code Subjective Date/time seen: 07/30/24 12:06 Interval history: Complains of soreness in the back. Breathing has improved. Apnea link test reviewed with the patient. Review of Systems Review of Systems: All systems reviewed & are unremarkable except as noted in HPI and below Exam Narrative: GENERAL: Thin built and in no acute distress. HEAD: Normocephalic, atraumatic. EYES: PERRLA and EOMI. ENT: Nares clear, no rhinorrhea or epistaxis. Mucous membranes moist. NECK: Supple. CHEST: Clear to auscultation. No respiratory distress. HEART: Regular rate and rhythm. No murmur heard. Normal peripheral pulses. ABDOMEN: Soft, nontender, nondistended, normal active bowel sounds. EXTREMITIES: Normal range of motion. No edema. SKIN: Warm, dry, no rash. NEURO: No focal deficits. Alert and oriented x3. PSYCH: Normal mood and affect. Objective Data Vital Signs Vital Signs: Vital Signs - 24 hr 07/29/24 15:34 07/29/24 20:00 07/29/24 20:53 Temperature 98.2 F Pulse Rate 64 64 61 Respiratory Rate 18 18 Blood Pressure 167/61 H Pulse Oximetry 97 97 Oxygen Delivery Nasal Cannula Oxygen Flow Rate 2 07/29/24 23:57 07/30/24 04:45 07/30/24 08:26 Temperature 96.8 F L 97.1 F L Pulse Rate 62 61 62 Respiratory Rate 16 20 Blood Pressure 132/52 L 143/55 H Pulse Oximetry 98 98 Oxygen Delivery Oxygen Flow Rate Intake/Output Intake/Output: Intake & Output 07/27/24 07/28/24 07/29/24 07/30/24 23:59 23:59 23:59 23:59 Intake Total 750 3280 1401.3 Output Total 2425 2495 Balance 750 855 -1093.7 Meds/Results Medications: Active Medications Generic Name Dose Route Start Last Admin Trade Name Freq PRN Reason Stop Dose Admin Acetaminophen 1,000 mg 07/28/24 14:15 07/30/24 08:26 Acetaminophen 500 Mg Tablet PO 1,000 mg Q6H KELLY Administration Al Hydrox/Mg Hydrox/Simethicone 20 ml 07/28/24 14:11 Mag Hydrox/Al Hydrox/Simeth 30 Ml Udc PO Q4H PRN Indigestion/Heartburn Alprazolam 0.25 mg 07/28/24 17:00 07/30/24 08:26 Alprazolam (*Crx) 0.25 Mg Tablet PO 0.25 mg BID KELLY Administration Atorvastatin Calcium 10 mg 07/30/24 09:00 07/30/24 08:24 Atorvastatin 10 Mg Tablet PO 10 mg Q48H KELLY Administration Baclofen 5 mg 07/28/24 17:00 07/30/24 08:25 Baclofen 5 Mg Tablet PO 5 mg TID KELLY Administration Bisacodyl 10 mg 07/28/24 14:14 Bisacodyl 10 Mg Suppository RECTAL DAILY PRN Constipation Carvedilol 6.25 mg 07/28/24 21:00 07/30/24 08:26 Carvedilol 6.25 Mg Tablet PO 6.25 mg Q12HR KELLY Administration Cyclobenzaprine HCl 10 mg 07/28/24 14:11 Cyclobenzaprine Hcl 10 Mg Tablet PO TID PRN Muscle Spasms Docusate Sodium 100 mg 07/28/24 21:00 07/30/24 08:23 Docusate Sodium 100 Mg Capsule PO 100 mg Q12HR KELLY Administration Gabapentin 400 mg 07/28/24 17:00 07/30/24 08:24 Gabapentin 400 Mg Capsule PO 400 mg TID KELLY Administration Cefazolin Sodium 1 gm in 50 mls @ 100 mls/hr 07/28/24 18:00 07/30/24 11:26 Ancef 1 Gm/Ns 50 Ml IVPB Infused Q8H KELLY Infusion Sodium Chloride 1,000 mls @ 100 mls/hr 07/28/24 14:15 07/30/24 03:50 Normal Saline Iv IV CONT 100 mls/hr .Q10H KELLY Administration Losartan Potassium 100 mg 07/29/24 09:00 07/30/24 08:26 Losartan Potassium 100 Mg Tablet PO 100 mg DAILY KELLY Administration Magnesium Citrate 300 ml 07/28/24 14:14 Magnesium Citrate 300 Ml Btl PO DAILY PRN Constipation Magnesium Hydroxide 30 ml 07/28/24 14:14 Magnesium Hydroxide Susp 30 Ml Udc PO HS PRN Constipation Morphine Sulfate 2 mg 07/28/24 14:11 Morphine Sulfate (*Crx) 2 Mg/Ml Inj IV PUSH Q2H PRN Breakthrough pain Ondansetron HCl 4 mg 07/28/24 14:11 Ondansetron Inj 4 Mg/2 Ml Vial IV PUSH Q8H PRN Nausea And Vomiting Oxycodone HCl 10 mg 07/28/24 14:11 07/30/24 03:24 Oxycodone Hcl (*Crx) 5 Mg Tab Ir PO 10 mg Q4H PRN Administration Pain Rated 7-10 Oxycodone HCl 5 mg 07/28/24 14:11 07/29/24 08:42 Oxycodone Hcl (*Crx) 5 Mg Tab Ir PO 5 mg Q4H PRN Administration Pain Rated 4-6 Polyethylene Glycol 17 gm 07/29/24 09:00 07/30/24 08:23 Polyethylene Glycol 3350 17 Gm Powd.Pack PO 17 gm DAILY KELLY Administration Potassium Chloride 10 meq 07/29/24 09:00 07/30/24 08:24 Potassium Chloride 10 Meq Er Tablet PO 10 meq DAILY KELLY Administration Ropinirole HCl 0.25 mg 07/28/24 21:00 07/29/24 20:52 Ropinirole Hcl 0.25 Mg Tablet PO 0.25 mg HS KELLY Administration Senna 8.6 mg 07/28/24 17:00 07/30/24 08:31 Sennosides 8.6 Mg Tablet PO 8.6 mg BID KELLY Administration Senna/Docusate Sodium 1 tab 07/28/24 14:11 Senna/Docusate Sodium Tablet PO HS PRN Constipation Sertraline HCl 100 mg 07/29/24 09:00 07/30/24 08:23 Sertraline Hcl 50 Mg Tablet PO 100 mg QAM KELLY Administration Radiology Results: ITS Impressions Fluoroscopy 07/28/24 14:06 IMPRESSION: 1. Posterior fusion procedure from C3 to C7. Chest X-Ray 07/28/24 21:47 IMPRESSION: No acute cardiopulmonary process. Labs Labs: Laboratory Results - last 24 hr 07/30/24 06:16 WBC 11.4 H RBC 3.85 L Hgb 11.9 L Hct 36.8 L MCV 95.6 MCH 30.9 MCHC 32.3 RDW 13.1 Plt Count 216 MPV 9.7 Immature Gran % (Auto) 0.2 Neut % (Auto) 65.8 Lymph % (Auto) 20.8 [facility] % (Auto) 10.9 H Eos % (Auto) 1.6 Baso % (Auto) 0.7 Lymph # (Auto) 2.36 [facility] # (Auto) 1.2 H Eos # (Auto) 0.2 Baso # (Auto) 0.1 Abs Immat Gran (auto) 0.02 Absolute Neuts (auto) 7.5 H Absolute Nucleated RBC 0.000 Nucleated RBC % 0.0 Sodium 138 Potassium 3.0 L Chloride 105 Carbon Dioxide 29 Anion Gap 4 BUN 7 Creatinine 0.40 L Estim Creat Clear Calc 83 Estimated GFR > 60 Glucose 90 Calcium 8.3 L Magnesium 1.8 Total Bilirubin 0.6 AST 19 ALT 9 Alkaline Phosphatase 88 Total Protein 6.0 L Albumin 3.1 L
--- NOTE | 2024-07-30 16:32 | PM.DS ---
DS: Admitting Diagnosis Discharge Date July 30, 2024 Admitting Diagnosis Cervical myelopathy DS: Discharge Diagnosis Discharge Diagnosis (1) Status post cervical arthrodesis: Code(s): Z98.1 - Arthrodesis status Status: Acute (2) Cervical myelopathy: Code(s): G95.9 - Disease of spinal cord, unspecified Status: Acute DS: Summary Hospital Course Hospital Course: Ms. Marie is a 74-year-old female with history of progressive mobility decline over the last few months, numbness in her hands, and objective findings of cervical myelopathy who presented on July 28 for surgery. Please see the operative note for more details. After surgery, she had a very prolonged emergence from anesthesia, and ABG showed CO2 retention for which she started on BiPAP. She went to the IMU for this reason. On the morning after surgery, she was no longer requiring BiPAP and was back to her baseline. She was transferred to the floor. She worked with Physical therapy who recommended returned to SNF. Her pain was adequately controlled. She did have some urinary retention requiring Servin catheter replacement on the night of surgery, but this was removed on postoperative day two a long with a Hemovac. She was able to void spontaneously. She was determined ready for discharge back to SNF on postoperative day two. Time Spent with Patient Time attestation: Total time spent providing and/or coordinating discharge services: DS: Data Data Completed and Pending Labs on day of discharge: Labs from last 24 hours 07/30/24 06:16 WBC 11.4 H RBC 3.85 L Hgb 11.9 L Hct 36.8 L MCV 95.6 MCH 30.9 MCHC 32.3 RDW 13.1 Plt Count 216 MPV 9.7 Immature Gran % (Auto) 0.2 Neut % (Auto) 65.8 Lymph % (Auto) 20.8 [facility] % (Auto) 10.9 H Eos % (Auto) 1.6 Baso % (Auto) 0.7 Lymph # (Auto) 2.36 [facility] # (Auto) 1.2 H Eos # (Auto) 0.2 Baso # (Auto) 0.1 Abs Immat Gran (auto) 0.02 Absolute Neuts (auto) 7.5 H Absolute Nucleated RBC 0.000 Nucleated RBC % 0.0 Sodium 138 Potassium 3.0 L Chloride 105 Carbon Dioxide 29 Anion Gap 4 BUN 7 Creatinine 0.40 L Estim Creat Clear Calc 83 Estimated GFR > 60 Glucose 90 Calcium 8.3 L Magnesium 1.8 Total Bilirubin 0.6 AST 19 ALT 9 Alkaline Phosphatase 88 Total Protein 6.0 L Albumin 3.1 L Discharge Plan Discharge Consulting providers: Nadege Hampton Discharging Clinician: Esperanza Menezes Patient Disposition: SNF Activity: other - see discharge instructions Diet: as tolerated Wound Care Instructions: follow printed instructions Discharge Instructions: Discharge Instructions Procedure: Posterior cervical decompression and fusion Your doctor removed bone and ligament to decompress your spinal cord and nerve roots, and then placed hardware to stabilize the spine. Here are some instructions to follow upon discharge from the hospital to help in your recovery. Activity: Unless released by your doctor, you should not return to work. You should rest at home and let your body heal. Taking short walks is encouraged, but avoid strenuous exercise. Do not jog, run, lift weights, bicycle, or participate in other exercises unless specifically allowed by your doctor. Most importantly, avoid lifting objects heavier than a telephone book or a carton of milk as this places a strain on your neck. If possible, avoid household activities that involve lifting such as laundry, grocery shopping, or childcare. Try to arrange for help from friends and family for these activities while your neck heals. You may shower starting on post-operative day 2 (Friday). After showering, lightly dab your wound dry. Do not take baths or sit in a hot tub or pool until approved by your doctor. You may get your incision wet with soap and water, but do not submerge the incision under water. DO NOT SMOKE TOBACCO. Smoking has been proven to interfere with the normal healing of the bones in your neck. Smoking will dramatically reduce the success rate of your surgery. Diet: You can return to your usual diet, unless instructed otherwise by your doctor. Medications: You should resume taking all of your normal medications unless instructed otherwise by your doctor. You may take Tylenol 1000mg every 6 hours as needed for pain. If your pain is still uncontrolled after Tylenol, then take oxycodone. You may also take flexeril for neck pain and muscle spasms every 8 hours. However, you should not take anti-inflammatory medications (such as Motrin, Advil, ibuprofen, naproxen) unless specifically approved by your doctor. These medications can prevent your bones from healing properly after surgery. If you have questions about your normal medications (for example, those prescribed for high blood pressure), you should contact your primary care doctor. You will be given a prescription for pain medications and possibly a laxative, as pain medications can cause constipation. Take the pain medication as instructed. If your pain is not reasonably controlled by the medications, contact your doctor's office. Follow-up appointment: You should already have a follow-up appointment scheduled with Dr. Menezes for removing your stitches in 2 weeks. If you do not have an appointment, call to schedule one. When to call our office: Although your surgery and recovery will likely be uneventful, you may have some residual aches and pains in your neck and/or arms. This is normal and should improve in the next few weeks. However, should you experience any of the following, call our office immediately. For medical emergencies, call 911. For urgent calls after hours, please call our exchange at [phone]. 1. Fevers 2. Drainage from your incision, or surrounding redness or swelling 3. Pain that is progressively getting worse and is not relieved by your medications 4. New numbness or weakness 5. Difficulty controlling your bladder 6. Loss of control of your bowels Esperanza Menezes MD Neurosurgery [place] [address], [place] [address] Patient Instructions: Pain Management (GEN) Stand Alone Forms: General Discharge Information Discharge Medications: New cyclobenzaprine 10 mg Tablet 10 mg PO TID PRN (Reason: Muscle Spasms) 10 Days Qty: 30 0RF oxycodone 5 mg Tablet 5 mg PO Q6H PRN (Reason: Pain Rated 4-6) 7 Days Qty: 28 0RF Continued acetaminophen 325 mg capsule 650 mg PO Q6H PRN (Reason: Pain) baclofen 5 mg tablet 5 mg PO TID bisacodyl 10 mg suppository 10 mg RECTAL DAILY PRN (Reason: Constipation) magnesium citrate [Citroma] Solution 300 ml PO DAILY PRN (Reason: Constipation) Fleet Enema 19-7 gram/118 mL enema 118 ml RECTAL ONCE PRN (Reason: Constipation) gabapentin 400 mg capsule 400 mg PO TID lidocaine 5 % adhesive patch,medicated 1 patch topical DAILY Patient Comments: LOWER BACK Rx Instructions: leave on most painful area for up to 12 hrs atorvastatin [Lipitor] 10 mg tablet 10 mg PO EVERY OTHER DAY losartan 100 mg tablet 100 mg PO DAILY ondansetron 4 mg tablet,disintegrating 4 mg PO Q6H PRN (Reason: Nausea And Vomiting) potassium chloride 10 mEq capsule, extended release 10 meq PO DAILY ropinirole 0.25 mg tablet 0.25 mg PO HS sennosides 8.6 mg tablet 8.6 mg PO BID sertraline 50 mg tablet 100 mg PO QAM polyethylene glycol 3350 [GlycoLax] 17 gram/dose Powder 17 g PO DAILY multivitamin [Multiple Vitamin] Tablet 1 tablet PO DAILY magnesium hydroxide [Milk of Magnesia] 400 mg/5 mL Suspension 30 ml PO HS PRN (Reason: Constipation) carvedilol 6.25 mg tablet 6.25 mg PO BID alprazolam 0.25 mg tablet 0.25 mg PO BID cholecalciferol (vitamin D3) 25 mcg (1,000 unit) Tablet 25 mcg PO DAILY Discontinued tramadol 50 mg tablet 100 mg PO BID PRN (Reason: Pain) Date of admission: 07/28/24 14:11 Primary Care Provider: Tanner Archer Admitting Provider: Esperanza Menezes Attending physician on admission: Esperanza Menezes Condition: Stable
== END 2024-07-30 17:55 | DRG 472 ==
LOC: ANHSURGERY 17:37 → ANHIMU 20:29 → ANH3MEDSUR 07-29 23:19
PROVIDERS: Anesthesiology; Internal Medicine; Student in an Organized Health Care Education/Training Program; Admitting Provider Neurological Surgery; PCP Family Medicine; Visit Provider Neurological Surgery
PROC: 0RG2071 Fusion of 2 or more Cervical Vertebral Joints with Autologous Tissue Substitute, Posterior Approach, Posterior Column, Open Approach (ICD-10-PCS; principal; 2024-07-28 10:00)
DX: M43.12 Spondylolisthesis, cervical region (principal); E87.29 Other acidosis; G95.9 Disease of spinal cord, unspecified; J95.89 Other postprocedural complications and disorders of respiratory system, not elsewhere classified; R33.8 Other retention of urine; N99.89 Other postprocedural complications and disorders of genitourinary system; I10 Essential (primary) hypertension; E78.5 Hyperlipidemia, unspecified; Z99.3 Dependence on wheelchair
CPT/HCPCS: 36415; 36600; 71045; 80053; 82805; 82948; 83735; 84100; 85018; 85025; 86850; 86900; 86901; 94002; 97110; 97161; 97166; 97530; 99199; A9270; C1713; J0461; J0690; J1100; J1171; J1596; J2004; J2371; J2405; J2704; J3010; J7030; J7120

== ENCOUNTER 2025-04-22 08:16 | Emergency (ER) | payer MEDICARE, MEDICAID, SELFPAY ==
[2025-04-22] VITALS (17 sets, daily range): BP systolic 176–215; BP diastolic 71–79; PULSE 43–73; RESP 12–19; TEMP 36.3; O2SAT 98–100
--- NOTE | 2025-04-22 08:21 | ECG_ITS ---
Test Date: 2025-04-22 08:22:33 Measurements Intervals Mather Rate: 47 P: 64 HI: 138 QRS: -30 QRSD: 78 T: 17 QT: 486 QTc: 430 Interpretive Statements SINUS BRADYCARDIA BORDERLINE LEFT AXIS DEVIATION [QRS AXIS < -20] No previous ECG available for comparison Electronically Signed On 04-23-2025 18:30:43 CDT by Prosper Velez M.D.
--- NOTE | 2025-04-22 08:22 | ED_ITS ---
HPI - General Adult General Chief complaint: Chest Pain Stated complaint: Chest pain History of Present Illness HPI narrative: 74-year-old female presented to the emergency department for evaluation for chest pain. Patient does have history of hypertension and did have some recent medication changes. Patient did receive for blood pressure medications this morning. Patient was complaining of left-sided chest pain. At time her arrival to the emergency department patient states the pain has resolved. Patient reports that she does have some lower back pain but this is chronic and unrelated to her chest pain. And time of evaluation patient is in no distress is well-appearing. Related Data Home Medications ?Medication ?Instructions ?Recorded ?Confirmed ?Last Taken ?Type acetaminophen 325 mg capsule 650 mg PO Q6H PRN Pain 07/07/24 07/27/24 Unknown History atorvastatin 10 mg tablet (Lipitor) 10 mg PO EVERY OTHER DAY 07/07/24 07/28/24 07/26/24 History baclofen 5 mg tablet 5 mg PO TID 07/07/24 07/28/24 07/27/24 21:00 History bisacodyl 10 mg rectal suppository 10 mg RECTAL DAILY PRN Constipation 07/07/24 07/27/24 Unknown History gabapentin 400 mg capsule 400 mg PO TID 07/07/24 07/28/24 07/28/24 06:00 History lidocaine 5 % topical patch 1 patch topical DAILY 07/07/24 07/27/24 Unknown History losartan 100 mg tablet 100 mg PO DAILY 07/07/24 07/28/24 07/27/24 09:00 History magnesium citrate (Citroma oral 300 ml PO DAILY PRN Constipation 07/07/24 07/27/24 Unknown History solution) ondansetron 4 mg disintegrating 4 mg PO Q6H PRN Nausea And Vomiting 07/07/24 07/27/24 Unknown History tablet potassium chloride 10 mEq 10 meq PO DAILY 07/07/24 07/28/24 07/27/24 09:00 History capsule,extended release ropinirole 0.25 mg tablet 0.25 mg PO HS 07/07/24 07/28/24 07/27/24 History sennosides 8.6 mg tablet 8.6 mg PO BID 07/07/24 07/28/24 07/27/24 21:00 History sertraline 50 mg tablet 100 mg PO QAM 07/07/24 07/28/24 07/28/24 06:00 History sodium phosphates 19 gram-7 118 ml RECTAL ONCE PRN Constipation 07/07/24 07/27/24 Unknown History gram/118 mL enema (Fleet Enema) alprazolam 0.25 mg tablet 0.25 mg PO BID 07/27/24 07/28/24 07/27/24 21:00 History carvedilol 6.25 mg tablet 6.25 mg PO BID 07/27/24 07/28/24 07/28/24 06:00 History cholecalciferol (vitamin D3) 25 25 mcg PO DAILY 07/27/24 07/28/24 07/25/24 History mcg (1,000 unit) tablet magnesium hydroxide 400 mg/5 mL 30 ml PO HS PRN Constipation 07/27/24 07/27/24 Unknown History oral suspension (Milk of Magnesia) multivitamin 1 tablet PO DAILY 07/27/24 07/28/24 07/21/24 History polyethylene glycol 3350 17 17 g PO DAILY 07/27/24 07/28/24 07/27/24 09:00 History gram/dose oral powder Allergies Allergy/AdvReac Type Severity Reaction Status Date / Time Penicillins Allergy Severe Unknown Verified 04/22/25 08:23 Review of Systems 2 Review of Systems: All systems reviewed & are unremarkable except as noted in HPI and below PMFSH Past Medical History Medical History Familial hypophosphatemia HLD (hyperlipidemia) IBS (irritable bowel syndrome) Hypertension Migraine Arthritis Anxiety Surgical History Surgical History Status post cervical arthrodesis Family History Family History Father Hypertension Mother Lung cancer Social History Social History Smoking status: Unknown if ever smoked Alcohol intake: never Substance use: never Do You Feel Safe in your Home?: Yes Lack of Transportation: No Lack of Food: Never True Current Housing: I Have Housing Concerned About Future Housing: No Difficulty Paying Gas/Electric Bills: No Difficulty Paying for Meds: No Currently Unemployed: No Education: High School Diploma/GED Difficulty w/ Childcare or Family Care: No Living arrangements: assisted Spiritual care concerns: No Exam 2 Narrative: APPEARANCE: Well appearing, no pain, no distress, well-nourished. HEAD: normocephalic, atraumatic. EYES: PERRLA/EOMI, conjunctivae clear. NOSE: Normal no drainage EARS:TMS clear with good light reflex. THROAT: Pharynx clear, no exudate. NECK: Supple. No adenopathy, no masses. RESPIRATORY: Airway patent, respirations nonlabored. Clear to auscultation bilaterally, no rales, rhonchi, wheezing. CARDIOVASCULAR: Regular rate and rhythm without murmurs rubs or gallops. ABDOMINAL: Soft, nontender, nondistended, normal bowel sounds MUSCULOSKELETAL: Moves all extremities. Strength/ROM intact, No edema, No calf tenderness. NEURO: Alert. Cranial nerves II through XII intact. Grossly intact SKIN: Warm, dry. Normal Color Course Vital Signs Vital signs: Vital Signs Temperature 97.4 F L 04/22/25 08:16 Pulse Rate 46 L 04/22/25 08:16 Respiratory Rate 18 04/22/25 08:16 Blood Pressure 215/75 H 04/22/25 08:16 Pulse Oximetry 98 04/22/25 08:16 Oxygen Delivery Room Air 04/22/25 08:16 Temperature 97.4 F L 04/22/25 08:16 Pulse Rate 73 04/22/25 12:02 Respiratory Rate 18 04/22/25 12:02 Blood Pressure 176/73 H 04/22/25 12:02 Pulse Oximetry 100 04/22/25 12:02 Oxygen Delivery Room Air 04/22/25 08:16 Medical Decision Making [facility] Narrative Medical decision making narrative: 74-year-old female presenting to the emergency department for evaluation for hypertension and chest pain. Patient did take her blood pressure medications this morning. Patient's blood pressure did improve with only a 2nd dose of hydralazine. Patient is currently afebrile with no leukocytosis and hemoglobin of 13.9. INR is 1.1. No acute abnormalities on the CMP with negative serial troponins. UA was negative for infection. Patient was updated on results of workup. All questions concerns were addressed patient was well-appearing at time of discharge. Differential Diagnosis Differential Diagnosis: Hypertension, gastritis, esophagitis, chronic back pain, ACS Vital Signs Vital Signs: Vital Signs Temperature 97.4 F L 04/22/25 08:16 Pulse Rate 46 L 04/22/25 08:16 Respiratory Rate 18 04/22/25 08:16 Blood Pressure 215/75 H 04/22/25 08:16 Pulse Oximetry 98 04/22/25 08:16 Oxygen Delivery Room Air 04/22/25 08:16 Temperature 97.4 F L 04/22/25 08:16 Pulse Rate 73 04/22/25 12:02 Respiratory Rate 18 04/22/25 12:02 Blood Pressure 176/73 H 04/22/25 12:02 Pulse Oximetry 100 04/22/25 12:02 Oxygen Delivery Room Air 04/22/25 08:16 Lab Data Lab results reviewed: Yes I reviewed the patient's lab results. 04/22/25 08:28 04/22/25 08:28 Labs: Lab Results 04/22/25 04/22/25 04/22/25 Range/Units 08:28 09:52 11:23 WBC 6.7 (4.5-10.0) K/mm3 RBC 4.67 (4.2-5.4) M/mm3 Hgb 13.9 (12.0-15.0) g/dL Hct 43.4 (37.0-47.0) % MCV 92.9 (80-100) fl MCH 29.8 (26-34) pg MCHC 32.0 (32-36) g/dl RDW 12.7 (11.5-14.5) % Plt Count 251 (150-375) k/mm3 MPV 9.5 (7.4-10.4) fl Immature Gran % (Auto) 0.4 (0-0.5) % Neut % (Auto) 53.4 (45.5-73.1) % Lymph % (Auto) 32.8 (18.3-44.2) % [place] % (Auto) 7.6 (2.6-8.5) % Eos % (Auto) 4.8 H (0-4.4) % Baso % (Auto) 1.0 (0.2-1.2) % Lymph # (Auto) 2.20 (0.9-3.2) K/mm3 [place] # (Auto) 0.5 (0.1-0.6) K/mm3 Eos # (Auto) 0.3 (0-0.3) K/mm3 Baso # (Auto) 0.1 (0.0-0.1) K/mm3 Abs Immat Gran (auto) 0.03 (0.00-0.031) K/mm3 Absolute Neuts (auto) 3.6 (1.3-6.7) K/mm3 Absolute Nucleated RBC 0.000 (0.0-0.012) K/mm3 Nucleated RBC % 0.0 (0.0-0.2) % PT 13.9 (11.1-14.7) Seconds INR 1.1 APTT 29.5 (22.3-36.8) Seconds Sodium 138 (137-145) mmol/L Potassium 3.9 (3.4-5.0) mmol/L Chloride 104 (98-107) mmol/L Carbon Dioxide 28 (22-30) mmol/L Anion Gap 6 (4-12) mmol/L BUN 11 (7-17) mg/dL Creatinine 0.58 L (0.7-1.0) mg/dL Estim Creat Clear Calc 59 ml/min Estimated GFR > 60 (59 - ) Glucose 88 (65-110) mg/dL Calcium 9.2 (8.4-10.2) mg/dL Total Bilirubin 0.6 (0.2-1.3) mg/dL AST 22 (14-36) U/L ALT 11 (6-35) U/L Alkaline Phosphatase 116 (38-126) U/L Troponin I < 0.012 < 0.012 (0.000-0.034) ng/mL NT-Pro-B Natriuret Pep 395 H (19.9-100) pg/mL Total Protein 7.5 (6.3-8.2) g/dL Albumin 3.9 (3.5-5.1) g/dL Urine Color Yellow (Yellow) Urine Appearance Clear (Clear) Urine pH 8.0 (5.0-9.0) Ur Specific [place] 1.007 (1.001-1.035) Urine Protein Negative (Negative) mg/dL Urine Glucose (UA) Negative (Negative) mg/dL Urine Ketones Negative (Negative) mg/dL Ur Blood (Man) Negative (Negative) Urine Nitrate Negative (Negative) Urine Bilirubin Negative (Negative) Urine Urobilinogen 0.2 (<2.0) mg/dL Leukocyte Esterase Rfl Negative (Negative) KILLIAN/UL ECG Data EKG #1: EKG Interpretation: bradycardia, sinus rhythm, no ectopy, no ST changes, normal QRS and NL axis Discharge Plan Discharge Clinical Impression: Atypical chest pain Hypertension Qualifiers: Hypertension type: primary hypertension Qualified Code(s): I10 - Essential (primary) hypertension Patient Disposition: Home Condition: Stable Instructions: Antibiotic Form, Chest Pain (ED) Additional Instructions: Continue your blood pressure medications as directed. Have close follow-up with your primary care physician. If you have any worsening symptoms then please call or return to the emergency department. Patient Language: Marshallese Prescriptions: No Action acetaminophen 325 mg capsule 650 mg PO Q6H PRN (Reason: Pain) baclofen 5 mg tablet 5 mg PO TID bisacodyl 10 mg suppository 10 mg RECTAL DAILY PRN (Reason: Constipation) magnesium citrate [Citroma] Solution 300 ml PO DAILY PRN (Reason: Constipation) Fleet Enema 19-7 gram/118 mL enema 118 ml RECTAL ONCE PRN (Reason: Constipation) gabapentin 400 mg capsule 400 mg PO TID lidocaine 5 % adhesive patch,medicated 1 patch topical DAILY Patient Comments: LOWER BACK Rx Instructions: leave on most painful area for up to 12 hrs atorvastatin [Lipitor] 10 mg tablet 10 mg PO EVERY OTHER DAY losartan 100 mg tablet 100 mg PO DAILY ondansetron 4 mg tablet,disintegrating 4 mg PO Q6H PRN (Reason: Nausea And Vomiting) potassium chloride 10 mEq capsule, extended release 10 meq PO DAILY ropinirole 0.25 mg tablet 0.25 mg PO HS sennosides 8.6 mg tablet 8.6 mg PO BID sertraline 50 mg tablet 100 mg PO QAM polyethylene glycol 3350 17 gram/dose Powder 17 g PO DAILY multivitamin Tablet 1 tablet PO DAILY magnesium hydroxide [Milk of Magnesia] 400 mg/5 mL Suspension 30 ml PO HS PRN (Reason: Constipation) carvedilol 6.25 mg tablet 6.25 mg PO BID alprazolam 0.25 mg tablet 0.25 mg PO BID cholecalciferol (vitamin D3) 25 mcg (1,000 unit) Tablet 25 mcg PO DAILY cyclobenzaprine 10 mg Tablet 10 mg PO TID PRN (Reason: Muscle Spasms) 10 Days Qty: 30 0RF oxycodone 5 mg Tablet 5 mg PO Q6H PRN (Reason: Pain Rated 4-6) 7 Days Qty: 28 0RF Follow-up/Referrals: PHYSICIAN,SENIOR RESEARCH CONSULTANT [Non-Staff] - Quality HEART score for chest pain patients History: slightly suspicious ECG: normal Age: > or = to 65 years Risk factors: 1 or 2 risk factors Troponin: < or = to 1x normal limit Heart score: 3
--- OUTSIDE RECORDS SUMMARY | 2025-04-22 08:34 | XMS_ITS | Continuity of Care Document ---
Author Organization [facility] Address [address] [place] [address] Dr Camp [address] [place] [id number] Phone Care Team Providers Care Receiving Manager Name Role Phone Vivian CRUZ Deidre Unavailable Unavailable Allergies, Adverse Reactions, Alerts Substance Reaction Status Criticality No Known Allergies Active No Inform ation Medications Medication Instructions Dosage Effective Dates (start - stop) Status Comments potassium chloride ER 10 mEq capsule,extended release take 2 capsule by oral route every day with food 20 MEQ - Active hydrochlorothiazide 12.5 mg tablet take 1 tablet by oral route every day 12.5 MG - Active Caltrate + D3 Plus Minerals 300 mg-800 unit-25 mg-0.5 mg tablet take 1 tablet once daily - Active carvedilol 3.125 mg tablet take 1 tablet by oral route 2 times every day with food 3.125 MG - Active meloxicam 15 mg tablet take 1 tablet by oral route every day 15 MG - Active alprazolam 0.25 mg tablet take 1 tablet by oral route 3 times every day 0.25 MG - Active sertraline 50 mg tablet take 1 tablet by oral route every day 50 MG - Active amlodipine 10 mg tablet take 1 tablet by oral route every day 10 MG - Active Crestor 5 mg tablet take 2 tablet by oral route every day 10 MG - Active lisinopril 40 mg tablet take 1 tablet by oral route every day 40 MG - Active Procedures Procedure Date No Charge Optomap Fundus Photos No Charge Refraction SCODI, Retina Office/outpatient Visit, Est Fundus Photography W/ Report Eye Exam & Treatment Fundus Photography W/ Report Eye Exam & Treatment Fundus Photography W/ Report Eye Exam & Treatment Eye Exam & Treatment No Charge Refraction Office/outpatient Visit, Est Office/outpatient Visit, Est Office/outpatient Visit, Est Office/outpatient Visit, Est Office/outpatient Visit, Est Office/outpatient Visit, Est Amniotic Membrane Placement Supply Code Office/outpatient Visit, New Advance Directives Directive Yes / No Effective Date File Name No Information Encounters Encounter Description Practice Location Reason(s) For Visit Diagnoses Date Provider Providers Copied on Encounter Office/outpa tient Visit, Est [facility], [address], [place], [place], [id number], tel:[phone] [place] Profession[place] Complete Exam (chief complaint) Dry eye syndrome of bilateral lacrimal glandsAge-re lated nuclear cataract, bilateralPuc kering of macula, right eye Nov-0 4 Vivian OD Deidre. [address] [facility] [address], [address], [place], [place], [id number], [place]. tel:[phone] Referring Provider: Rajesh Mckinnon, [address] [facility] [address], [place], [address]. tel:[phone] [facility], [email or web address], [place], [place], [id number], [place] tel:[phone] [place] Profession[place] Complete Exam (chief complaint) Puckering of macula, right eyeCombined forms of age-related cataract, right eyeAge-relat ed nuclear cataract, left eyeVitreous degeneration , bilateral Oct-2 3 Rayshawn Mena. [address] [facility], [address], [place], [place], [address], [place]. tel:[phone] Referring Provider: Marlee Rodriguez[address] [facility] [address], [place], [address]. tel:[phone] [facility], [address], [place], [place], [address], [place] tel:[phone] [place] Complete Exam (chief complaint) Age-related nuclear cataract, bilateralVit reous degeneration , bilateralABM D (anterior basement membrane dystrophy) 2 Rayshawn Mena. [address] [facility], [address], [place], [place], [address], [place]. tel:[phone] Referring Provider: Noel Forde, [address], [place], [address]. tel:[phone] [facility], [address], [place], [place], [address], [place] tel:[phone] [place] Professiona l Complete Exam (chief complaint) Combined forms of age-related cataract, right eyeAge-relat ed nuclear cataract, left eyeABMD (anterior basement membrane dystrophy)Pu nctate keratitis, left eyeVitreous degeneration , bilateral 1 Rayshawn Mena. [address] [facility], [address], [place], [place], [address], [place]. tel:[phone] Referring Provider: Rajesh Mckinnon, [address] [facility] [address], [place], [address]. tel:[phone] [facility], [address], [place], [place], [id number], [place] tel:[phone] [place] Prof[place] Complete Exam (chief complaint) Dry eye syndrome of bilateral lacrimal glandsAge-re lated nuclear cataract, bilateralABM D (anterior basement membrane dystrophy) 2201 9 Kirsten Coffman. [address] [facility], 6th [address], [place], [address], [place]. tel:[phone] Referring Provider: Augustus Curtis OD R, [address] [facility] [address] [facility], [place], [address]. tel:[phone] Office/outpa tient Visit, [facility], [address] [place], [place] [address], [place], [place], [id number], [place] tel:[phone] [place] Profession[place] 3 mo Cornea check (chief complaint) Filamentary keratitis of left eye 9 Kirsten NANCY Augustus. [address] [facility], [address] [place] [address], [place], [address], [place]. tel:[phone] Referring Provider: Augustus Curtis OD R, [address] [place] [address], [place], [address]. tel:[phone] Office/outpa tient Visit, [facility], [address] [place] [address], [place], [place], [id number], [place] tel:[phone] [place] Profession[place] Cornea (chief complaint) Filamentary keratitis of left eyeABMD (anterior basement membrane dystrophy) 9 Rayshawn Mena. [address] [facility] [address] [place], [id number], [place]. tel:[phone] Referring Provider: Augustus Curtis OD R, [address] [place] [address], [place], [address]. tel:[phone] Office/outpa tient Visit, [facility], [address] [place], [place] [address], [place], [place], [id number], [place] tel:[phone] [place] Profession[place] cornea evaluation (chief complaint) ABMD (anterior basement membrane dystrophy)Dr y eye syndrome of bilateral lacrimal glandsAge-re lated nuclear cataract, bilateralFil amentary keratitis of left eye 9 Olga Tatum. [address] [place] [address] Drive, [address], [place], [place], [address], [place]. tel:[phone] Referring Provider: Augustus Curtis OD R, [address], [facility]. tel:[phone] Office/outpa tient Visit, [facility], [address] [place], [place] [address], [place], [id number], tel:[phone] [place] Profession[place] Follow up visit (chief complaint) Filamentary keratitis of left eyeMeibomian gland dysfnct left eye, upper and lower eyelidsMeibo sanchez gland dysfnct right eye, upper and lower eyelidsNon-S jogrens keratoconjun ctivitis sicca of left eyeInfiltrat e of left cornea Feb-0 6 9 Kirsten OD Augustus. [address] [place] [address], [facility], . tel:[phone] Referring Provider: Augustus Curtis OD R, [address] [place] [address], [facility]. tel:[phone] Office/outpa tient Visit, [facility], [address] [place] [address], [id number], tel:[phone] [place] Profession[place] 4 day F/u (chief complaint) Filamentary keratitis of left eyeMeibomian gland dysfnct left eye, upper and lower eyelidsMeibo sanchez gland dysfnct right eye, upper and lower eyelidsNon-S jogrens keratoconjun ctivitis sicca of left eyeInfiltrat e of left cornea b0 9 Kirsten OD Augustus. [address] [place] [address], [facility], [place]. tel:[phone] Referring Provider: Augustus Curtis OD R, [address] [place] [address], [facility]. tel:[phone] Office/outpa tient Visit, [facility], [address] [place] [address] [address], [place], [place], [id number], tel:[phone] [place] Profession[place] 2 day f/u Filamentary Keratitis (chief complaint) Filamentary keratitis of left eyeMeibomian gland dysfnct left eye, upper and lower eyelidsMeibo sanchez gland dysfnct right eye, upper and lower eyelidsNon-S jogrens keratoconjun ctivitis sicca of left eye 9 Kirsten OD Augustus. [address] [facility], [address] [place] [address], [address], . tel:[phone] Referring Provider: Augustus Fitzgerald, [address] [place] [address], [address]. tel:[phone] Office/outpa tient Visit, [facility], [address] [facility] [address], [place], [place], [id number], tel:[phone] [place] Profession[place] Red and itchy (chief complaint) Filamentary keratitis of left eyeMeibomian gland dysfnct right eye, upper and lower eyelidsMeibo sanchez gland dysfnct left eye, upper and lower eyelids 9 Kirsten CRUZ Augustus. [address] [place] [address], [address] [place] [address], [place], [facility], . tel:[phone] Referring Provider: Augustus Fitzgerald, [address] [place] [address], [facility]. tel:[phone] Family History Family Member Type Diagnosis Age At Onset Problem (finding) Family history of glauc erika Payers Payer name Insurance type Covered republican ID Authoriza tion(s) [place] [id number] [facility] [id number] Social History Type Description Quantity Date Captured Comments Alcohol Use Details No Caffeine Use Details No Tobacco Use Status Current non-smoker Smoking Status Never smoker Non-Smoking Tobacco Use Details : No Details Available : No Details Available Sex Female Chief Complaint And Reason For Visit From encounter dated '12/01/2023 11:00'. Complete Exam (chief complaint). Description: The 73 year old patient presents for a complete exam ou. Monitoring ERM OD and PVD OU. Patient states her feet and hands are numb. Patient denies any changes in vision. Patient states she can't put drops in her eyes because her hands are numb. Reason For Referral Reason For Referral No Information Plan Of Treatment Date Type Action Status Patient Education The Eye: Anatomy Sketch completed Patient Education Cataracts: Care Instruc tions completed Patient Education Cataracts: Care Instruc tions completed Patient Education Learning About Your Eye s completed History Of Present Illness Encounter Date Complaint History Of Prese nt Illness Complete Exam The 73 year old patient presents for a complete exam ou. Monitoring ERM OD and PVD OU. Patient states her feet and hands are numb. Patient denies any changes in vision. Patient states she can't put drops in her eyes because her hands are numb. Complete Exam The 72 year old patient presents for evaluation of Complete Exam in the right eye and left eye. Pt reports stable VA, OU, DV and NV, since last appt. Pt states she doesn't want to have CE until she absolutely has to and she doesn't want to at this time. Pt reports she uses PF AFT TID-QID OU. Complete Exam The 71 year old female presents for evaluation of Complete Exam in the right eye and left eye. Hx of PVD OU, EBMD OU, Cataracts OU, and FIDENCIO OU. Patient states VA seems stable OU. Denies any problems or changes with her eyes. Patient states her OD told her that cataract surgery is not needed at this time. Complete Exam The 70 year old female presents for a complete exam ou. Monitoring cataracts and FIDENCIO ou. Patient uses AT bid ou. Patient states eyes are doing good. Patient has been doing adult coloring and sometimes eyes get tired. Patient sees Dr. Gramajo for glasses. Patient's glasses new an adjustment. Complete Exam The 69 year old female presents for a complete exam ou. Patient has hx of Filamentary keratitis OS. Patient states she uses PF AT (in vials) at least tid ou. Patient does do warm compresses. Patient states every now and then OS gets blurry. 3 mo Cornea check The 68 year ol d female presents for evaluation of 3 mo Cornea check in the right eye and left eye. Hx of Filamentary Keratitis OS, CAT OU, MGD OU, FIDENCIO OU, and ABMD OU. Pt reports she is using AFT BID-TID OU. Pt reports OU seems to be doing ok. Cornea The 68 year old female presents for evaluation of Cornea in the left eye. Hx of Filamentary Keratitis OS, Cataracts OU, MGD OU, FIDENCIO OU, and ABMD OU. Pt using AFT and Acetylcysteine OU prn, also warm compress and lid scrubs. Pt states OS vision has improved x mos. cornea evaluation The 68 year ol d female presents for a 1 week cornea evaluation OS per Dr. Curtis for Filamentary Keratitis OS. Patient is using Tobradex qid OS and N-Acetyl 10% qid OS and PF AT OS and AT OD. Patient states OS is doing really good. Follow up visit The 68 year old female presents for a 2 day follow up for Keratitis OS. Patient is using Tobradex qid OS. Patient received Mucosil 10% last night and states to keep cool. Patient states OS is doing alot better. Patient states vision is still a little blurred. Patient states she is seeing colors better. 4 day F/u The 68 year old female presents for evaluation of 4 day F/u in the left eye. Patient has not received N-acetyl gtts yet, has not verified address with compounding pharmacy.Patient still wearing eyeshield, states she adjusted it twice over the weekend. Patient noted minor irritation when placing shield on again. Patient states the eye still tears. 2 day f/u Filamentary Keratitis The 68 year old female presents for evaluation of 2 day f/u Filamentary Keratitis in the left eye. Patient states the left eye is slightly improving VA is still blurry, red, and watering. Patient using PF art tears prn, Poly BID OS, and Acetylcysteine 10% QID OS. Red and itchy The 68 year old female presents for evaluation of Red and itchy in the left eye. Four days ago OS started getting red, itchy, tearing, and a white discharge. OS lid is also swollen. Pt using Refresh OU prn. Pt states vision is very blurry when the tearing started. Functional Status Date Functional Assessmen t No Information Instructions Date Instruction Additional Infor bj Impression/Plan Impression/Plan Impression/Plan Impression/Plan Impression/Plan 6mo complete or sooner prn Relat ed to Filamentary keratitis of left eye Impression/Plan Related to Filam entary keratitis of left eye Impression/Plan Impression/Plan Impression/Plan Impression/Plan Impression/Plan Impression/Plan Assessments Type Assessment Date assessment Dry eye syndrome of bilateral la crimal glands assessment Age-related nuclear cataract, bi lateral assessment Puckering of macula, right eye M Patient Care Teams Name Effective Dates (start - stop) Status Members No Information
[2025-04-22 08:48] LABS: Hematocrit 43.4 % (37.0-47.0); Hemoglobin 13.9 g/dL (12.0-15.0); Immature Granulocyte Percent A 0.4 % (0-0.5); Lymphocytes Absolute Auto 2.20 K/mm3 (0.9-3.2); Mean Corpuscular HGB Conc 32.0 g/dl (32-36); Mean Corpuscular Hemoglobin 29.8 pg (26-34); Mean Corpuscular Volume 92.9 fl (80-100); Nucleated Red Blood Cells Absolute Auto 0.000 K/mm3 (0.0-0.012); Nucleated Red Blood Cells Perc 0.0 % (0.0-0.2); Platelet Count Result 251 k/mm3 (150-375); Red Blood Count 4.67 M/mm3 (4.2-5.4); White Blood Count 6.7 K/mm3 (4.5-10.0)
[2025-04-22 09:05] LABS: INR 1.1; Partial Thromboplastin Time 29.5 Seconds (22.3-36.8); Prothrombin Time 13.9 Seconds (11.1-14.7)
[2025-04-22 09:10] LABS: Alanine Aminotransferase 11 U/L (6-35); Albumin Level 3.9 g/dL (3.5-5.1); Alkaline Phosphatase 116 U/L (38-126); Anion Gap 6 mmol/L (4-12); Aspartate Amino Transferase 22 U/L (14-36); Bilirubin,Total 0.6 mg/dL (0.2-1.3); Blood Urea Nitrogen 11 mg/dL (7-17); Calcium 9.2 mg/dL (8.4-10.2); Carbon Dioxide 28 mmol/L (22-30); Chloride 104 mmol/L (98-107); Estimated CRCL calculation 59 ml/min; Estimated Glomerular Filt Rate > 60; Glucose 88 mg/dL (65-110); Potassium 3.9 mmol/L (3.4-5.0); Sodium 138 mmol/L (137-145); Total Protein 7.5 g/dL (6.3-8.2)
[2025-04-22 09:20] LABS: NT Pro B Type Natriuretic Pept 395 pg/mL (19.9-100); Troponin I < 0.012 ng/mL (0.000-0.034)
[2025-04-22 10:12] LABS: Add Urine Microscopic? NO; Appearance Urine Clear (Clear); Glucose Urine UA Negative (Negative); Leukocyte Esterase Ur Negative LEU/UL (Negative); Nitrate Urine Negative (Negative); Specific Grav Ur 1.007 (1.001-1.035)
--- NOTE | 2025-04-22 11:14 | ECG_ITS ---
Test Date: 2025-04-22 11:27:46 Measurements Intervals [place] Rate: 45 P: 69 MA: 138 QRS: 0 QRSD: 79 T: 31 QT: 494 QTc: 430 Interpretive Statements SINUS BRADYCARDIA Compared to ECG 04/22/2025 08:22:33 No significant changes Electronically Signed On 04-23-2025 18:36:57 CDT by Prosper Velez M.D.
[2025-04-22 12:03] LABS: Troponin I < 0.012 ng/mL (0.000-0.034)
--- NOTE | 2025-04-22 13:22 | PC.NURSE ---
Staff from [facility] came and picked patient up in her own w/c for discharge.
== END 2025-04-22 13:37 ==
PROVIDERS: Emergency Provider Emergency Medicine; PCP Family Medicine
DX: R07.89 Other chest pain (principal); I10 Essential (primary) hypertension; E83.31 Familial hypophosphatemia; K58.9 Irritable bowel syndrome, unspecified; M19.90 Unspecified osteoarthritis, unspecified site; F41.9 Anxiety disorder, unspecified; Z98.1 Arthrodesis status; Z79.899 Other long term (current) drug therapy; R00.1 Bradycardia, unspecified
CPT/HCPCS: 36415; 80053; 81003; 83880; 84484; 85025; 85610; 85730; 93005; 96374; 99284; J0360

== ENCOUNTER 2025-05-22 12:14 | Emergency (ER) | payer MEDICARE, MEDICAID, SELFPAY ==
[2025-05-22] VITALS (17 sets, daily range): BP systolic 96–138; BP diastolic 48–61; PULSE 45–57; RESP 12–20; TEMP 36.7; O2SAT 94–99
--- NOTE | ~2025-05-22 | XR_ITS ---
XR chest 1V 05/22/2025 13:38 Indication: Confusion Procedure: AP portable chest Comparison: 07/28/2024 Findings: No evidence for focal pneumonia. Heart size normal. Right lung clear. No significant effusion or pneumothorax. No edema. There is severe degenerative change of the shoulders. Impression: 1: No acute cardiopulmonary disease. Reviewed, dictated and finalized at location O. Impression: 1: No acute cardiopulmonary disease.
--- NOTE | ~2025-05-22 | CT_ITS ---
EXAMINATION: CT brain wo con DATE: 05/22/2025 13:31 INDICATION: Confusion TECHNIQUE: Computed tomography (CT) of the head was performed without intravenous contrast. The dose-length product was 681.00 mGy-cm. COMPARISON: CT dated 04/16/2024 FINDINGS: Normal brain parenchymal volume for age. There are scattered mild periventricular and subcortical white matter changes, most likely related to small vessel ischemic disease (microangiopathy). There is intracranial atherosclerosis of the vertebral arteries and carotid siphon. Paranasal sinuses and mastoids are pneumatized. No depressed skull fractures. No acute infarction, hemorrhage or mass. IMPRESSION: 1. No acute intracranial abnormality. Reviewed, dictated and finalized at location O.
[2025-05-22 12:41] LABS: Hematocrit 38.7 % (37.0-47.0); Hemoglobin 12.5 g/dL (12.0-15.0); Immature Granulocyte Percent A 0.4 % (0-0.5); Lymphocytes Absolute Auto 2.51 K/mm3 (0.9-3.2); Mean Corpuscular HGB Conc 32.3 g/dl (32-36); Mean Corpuscular Hemoglobin 29.9 pg (26-34); Mean Corpuscular Volume 92.6 fl (80-100); Nucleated Red Blood Cells Absolute Auto 0.000 K/mm3 (0.0-0.012); Nucleated Red Blood Cells Perc 0.0 % (0.0-0.2); Platelet Count Result 297 k/mm3 (150-375); Red Blood Count 4.18 M/mm3 (4.2-5.4); White Blood Count 9.3 K/mm3 (4.5-10.0)
--- NOTE | 2025-05-22 12:54 | ED.AMS ---
HPI - Altered Mental Status General Chief Complaint: Altered Mental Status Stated Complaint: confusion Time Seen by Provider: 05/22/25 12:50 Source: EMS Mode of arrival: EMS History of Present Illness HPI narrative: 74 YEARS OLD WHITE FEMALE C[facility] FROM [facility] WITH [facility]IEF COMPLAINT OF RECENT URINARY TRACT INFECTION STARTED ON ANTIBIOTIC YESTERDAY, TODAY LOOKS MORE CONFUSED THAN USUAL. IN THE ED PATIENT COMPLAINING OF BURNING URINATION FOR ROUGHLY 1 WEEK. OTHERWISE PATIENT IS AWAKE, ALERT ORIENTED X4 DENYING ANY PAIN. SHE REPORT SOME SLIGHT HEADACHE AT THE RIGHT SIDE OF THE HEAD. SHE DENIES ANY FEVER, CHILLS, NAUSEA, VOMITING, CHEST PAIN, SHORTNESS OF BREATH OR NECK PAIN. Related Data Home Medications ?Medication ?Instructions ?Recorded ?Confirmed ?Last Taken ?Type acetaminophen 325 mg capsule 650 mg PO Q6H PRN Pain 07/07/24 07/27/24 Unknown History atorvastatin 10 mg tablet (Lipitor) 10 mg PO EVERY OTHER DAY 07/07/24 07/28/24 07/26/24 History baclofen 5 mg tablet 5 mg PO TID 07/07/24 07/28/24 07/27/24 21:00 History bisacodyl 10 mg rectal suppository 10 mg RECTAL DAILY PRN Constipation 07/07/24 07/27/24 Unknown History gabapentin 400 mg capsule 400 mg PO TID 07/07/24 07/28/24 07/28/24 06:00 History lidocaine 5 % topical patch 1 patch topical DAILY 07/07/24 07/27/24 Unknown History losartan 100 mg tablet 100 mg PO DAILY 07/07/24 07/28/24 07/27/24 09:00 History magnesium citrate (Citroma oral 300 ml PO DAILY PRN Constipation 07/07/24 07/27/24 Unknown History solution) ondansetron 4 mg disintegrating 4 mg PO Q6H PRN Nausea And Vomiting 07/07/24 07/27/24 Unknown History tablet potassium chloride 10 mEq 10 meq PO DAILY 07/07/24 07/28/24 07/27/24 09:00 History capsule,extended release ropinirole 0.25 mg tablet 0.25 mg PO HS 07/07/24 07/28/24 07/27/24 History sennosides 8.6 mg tablet 8.6 mg PO BID 07/07/24 07/28/24 07/27/24 21:00 History sertraline 50 mg tablet 100 mg PO QAM 07/07/24 07/28/24 07/28/24 06:00 History sodium phosphates 19 gram-7 118 ml RECTAL ONCE PRN Constipation 07/07/24 07/27/24 Unknown History gram/118 mL enema (Fleet Enema) alprazolam 0.25 mg tablet 0.25 mg PO BID 07/27/24 07/28/24 07/27/24 21:00 History carvedilol 6.25 mg tablet 6.25 mg PO BID 07/27/24 07/28/24 07/28/24 06:00 History cholecalciferol (vitamin D3) 25 25 mcg PO DAILY 07/27/24 07/28/24 07/25/24 History mcg (1,000 unit) tablet magnesium hydroxide 400 mg/5 mL 30 ml PO HS PRN Constipation 07/27/24 07/27/24 Unknown History oral suspension (Milk of Magnesia) multivitamin 1 tablet PO DAILY 07/27/24 07/28/24 07/21/24 History polyethylene glycol 3350 17 17 g PO DAILY 07/27/24 07/28/24 07/27/24 09:00 History gram/dose oral powder Allergies Allergy/AdvReac Type Severity Reaction Status Date / Time Penicillins Allergy Severe Unknown Verified 04/22/25 08:23 Review of Systems Review of Systems: All systems reviewed & are unremarkable except as noted in HPI and below PMFSH Past Medical History Medical History Familial hypophosphatemia HLD (hyperlipidemia) IBS (irritable bowel syndrome) Hypertension Migraine Arthritis Anxiety Surgical History Surgical History Status post cervical arthrodesis Family History Family History Father Hypertension Mother Lung cancer Social History Social History Smoking status: Unknown if ever smoked Alcohol intake: never Substance use: never Do You Feel Safe in your Home?: Yes Lack of Transportation: No Lack of Food: Never True Current Housing: I Have Housing Concerned About Future Housing: No Difficulty Paying Gas/Electric Bills: No Difficulty Paying for Meds: No Currently Unemployed: No Education: High School Diploma/GED Difficulty w/ Childcare or Family Care: No Living arrangements: care home Spiritual care concerns: No Exam Narrative: GENERAL APPEARANCE: WELL-DEVELOPED, WELL-NOURISHED SKIN: NORMAL COLOR HEAD: NORMOCEPHALIC, NONTRAUMATIC EYES: CLEAR CONJUNCTIVA ENT: DRY ORAL CAVITY NECK: SUPPLE, NONTENDER CHEST AND RESPIRATORY: AIRWAY PATENT, NO RESPIRATORY DISTRESS, NO ACCESSORY MUSCLE USE HEART: REGULAR RATE/RHYTHM ABDOMEN: SOFT, NONTENDER, NO ORGANOMEGALY, QUIET BOWEL SOUNDS VASCULAR: NORMAL PERIPHERAL PULSES, NORMAL CAPILLARY REFILL. MUSCULOSKELETAL: NORMAL RANGE OF MOTION, NONTENDER BACK NEUROLOGIC: ALERT AND ORIENTED ?3, EDUCATIONAL RECRUITER IS NORMAL TESTED, NO GROSS MOTOR DEFICIT Course Vital Signs Vital signs: Vital Signs Temperature 36.7 C 05/22/25 12:15 Pulse Rate 51 L 05/22/25 12:15 Respiratory Rate 18 05/22/25 12:15 Blood Pressure 96/48 L 05/22/25 12:15 Pulse Oximetry 96 05/22/25 12:15 Oxygen Delivery Room Air 05/22/25 12:15 Temperature 36.7 C 05/22/25 12:15 Pulse Rate 57 L 05/22/25 15:01 Respiratory Rate 14 05/22/25 15:01 Blood Pressure 126/53 L 05/22/25 15:01 Pulse Oximetry 96 05/22/25 15:01 Oxygen Delivery Room Air 05/22/25 12:15 MDM - Altered Mental Status MDM Narrative Medical decision making narrative: PATIENT PRESENTS WITH THE CHIEF COMPLAIN OF BURNING URINATION AND INCREASED CONFUSION VITAL SIGNS SHOWING BLOOD PRESSURE 96 OVER 48, HEART RATE 51 OTHERWISE WITHIN NORMAL LIMIT PHYSICAL EXAMINATION SHOWING THAT THE PATIENT IS AWAKE, ALERT ORIENTED X4, COMPLAINING OF BURNING URINATION AND DRY MOUTH. DIFFERENTIAL DIAGNOSIS INCLUDE URINARY TRACT INFECTION, ELECTROLYTE IMBALANCE, DEHYDRATION, ANXIETY LIKE SYMPTOMS BLOOD WORKUP TODAY INCLUDES CBC, CMP, SHOWED URINALYSIS SHOWED CHEST X-RAY SHOWED CT HEAD WITHOUT CONTRAST SHOWED Differential Diagnosis Differential diagnosis: Likely other ( ABOVE) Medical Records Attestation: I reviewed the patient's medical records. Lab Data Attestation: I reviewed the patient's lab results. 05/22/25 12:35 05/22/25 12:35 Labs: Lab Results 05/22/25 05/22/25 Range/Units 12:35 12:51 WBC 9.3 (4.5-10.0) K/mm3 RBC 4.18 L (4.2-5.4) M/mm3 Hgb 12.5 (12.0-15.0) g/dL Hct 38.7 (37.0-47.0) % MCV 92.6 (80-100) fl MCH 29.9 (26-34) pg MCHC 32.3 (32-36) g/dl RDW 12.4 (11.5-14.5) % Plt Count 297 (150-375) k/mm3 MPV 9.4 (7.4-10.4) fl Immature Gran % (Auto) 0.4 (0-0.5) % Neut % (Auto) 61.0 (45.5-73.1) % Lymph % (Auto) 26.9 (18.3-44.2) % Bureau % (Auto) 9.3 H (2.6-8.5) % Eos % (Auto) 1.7 (0-4.4) % Baso % (Auto) 0.7 (0.2-1.2) % Lymph # (Auto) 2.51 (0.9-3.2) K/mm3 Bureau # (Auto) 0.9 H (0.1-0.6) K/mm3 Eos # (Auto) 0.2 (0-0.3) K/mm3 Baso # (Auto) 0.1 (0.0-0.1) K/mm3 Abs Immat Gran (auto) 0.04 H (0.00-0.031) K/mm3 Absolute Neuts (auto) 5.7 (1.3-6.7) K/mm3 Absolute Nucleated RBC 0.000 (0.0-0.012) K/mm3 Nucleated RBC % 0.0 (0.0-0.2) % PT 14.7 (11.1-14.7) Seconds INR 1.2 APTT 30.1 (22.3-36.8) Seconds Sodium 138 (137-145) mmol/L Potassium 3.9 (3.4-5.0) mmol/L Chloride 105 (98-107) mmol/L Carbon Dioxide 28 (22-30) mmol/L Anion Gap 5 (4-12) mmol/L BUN 17 (7-17) mg/dL Creatinine 0.80 (0.7-1.0) mg/dL Estim Creat Clear Calc 45 ml/min Estimated GFR > 60 (59 - ) Glucose 100 (65-110) mg/dL Lactic Acid 1.5 (0.7-2.0) mmol/L Calcium 8.9 (8.4-10.2) mg/dL Total Bilirubin 0.2 (0.2-1.3) mg/dL AST 23 (14-36) U/L ALT 13 (6-35) U/L Alkaline Phosphatase 110 (38-126) U/L Total Protein 6.9 (6.3-8.2) g/dL Albumin 3.6 (3.5-5.1) g/dL Urine Color Yellow (Yellow) Urine Appearance Turbid H (Clear) Urine pH 7.5 (5.0-9.0) Ur Specific [place] 1.010 (1.001-1.035) Urine Protein Trace (Negative) mg/dL Urine Glucose (UA) Negative (Negative) mg/dL Urine Ketones Negative (Negative) mg/dL Ur Blood (Man) 1+ H (Negative) Urine Nitrate Negative (Negative) Urine Bilirubin Negative (Negative) Urine Urobilinogen 0.2 (<2.0) mg/dL Add Ur Microanalysis Reviewed Leukocyte Esterase Rfl 3+ H (Negative) KILLIAN/UL Urine RBC 0-2 (0-2) /hpf Urine WBC >100 H (0-3) /hpf Ur Squamous Epith Cells None seen (Few) /hpf Urine Bacteria 4+ H /hpf Urine Casts 0-2 Critical Care Time Critical Care Time Critical Care Time: No Discharge Plan Discharge Clinical Impression: Urinary tract infection Patient Disposition: [facility] Living Condition: Stable Instructions: Antibiotic Form, Urinary Tract Infection in Women ([facility]) Additional Instructions: Return if symptoms are worsening , call your family physician for appointment, take Tylenol as as needed for aches and pain, continue home medications. Patient Language: Japanese Prescriptions: New ciprofloxacin HCl [Cipro] 500 mg tablet 500 mg PO Q12H Qty: 10 0RF No Action acetaminophen 325 mg capsule 650 mg PO Q6H PRN (Reason: Pain) baclofen 5 mg tablet 5 mg PO TID bisacodyl 10 mg suppository 10 mg RECTAL DAILY PRN (Reason: Constipation) magnesium citrate [Citroma] Solution 300 ml PO DAILY PRN (Reason: Constipation) Fleet Enema 19-7 gram/118 mL enema 118 ml RECTAL ONCE PRN (Reason: Constipation) gabapentin 400 mg capsule 400 mg PO TID lidocaine 5 % adhesive patch,medicated 1 patch topical DAILY Patient Comments: LOWER BACK Rx Instructions: leave on most painful area for up to 12 hrs atorvastatin [Lipitor] 10 mg tablet 10 mg PO EVERY OTHER DAY losartan 100 mg tablet 100 mg PO DAILY ondansetron 4 mg tablet,disintegrating 4 mg PO Q6H PRN (Reason: Nausea And Vomiting) potassium chloride 10 mEq capsule, extended release 10 meq PO DAILY ropinirole 0.25 mg tablet 0.25 mg PO HS sennosides 8.6 mg tablet 8.6 mg PO BID sertraline 50 mg tablet 100 mg PO QAM polyethylene glycol 3350 17 gram/dose Powder 17 g PO DAILY multivitamin Tablet 1 tablet PO DAILY magnesium hydroxide [Milk of Magnesia] 400 mg/5 mL Suspension 30 ml PO HS PRN (Reason: Constipation) carvedilol 6.25 mg tablet 6.25 mg PO BID alprazolam 0.25 mg tablet 0.25 mg PO BID cholecalciferol (vitamin D3) 25 mcg (1,000 unit) Tablet 25 mcg PO DAILY cyclobenzaprine 10 mg Tablet 10 mg PO TID PRN (Reason: Muscle Spasms) 10 Days Qty: 30 0RF oxycodone 5 mg Tablet 5 mg PO Q6H PRN (Reason: Pain Rated 4-6) 7 Days Qty: 28 0RF Follow-up/Referrals: Tanner Archer MD [Primary Care Provider, Family Practice]
[2025-05-22 12:58] LABS: Alanine Aminotransferase 13 U/L (6-35); Albumin Level 3.6 g/dL (3.5-5.1); Alkaline Phosphatase 110 U/L (38-126); Anion Gap 5 mmol/L (4-12); Aspartate Amino Transferase 23 U/L (14-36); Bilirubin,Total 0.2 mg/dL (0.2-1.3); Blood Urea Nitrogen 17 mg/dL (7-17); Calcium 8.9 mg/dL (8.4-10.2); Carbon Dioxide 28 mmol/L (22-30); Chloride 105 mmol/L (98-107); Estimated CRCL calculation 45 ml/min; Estimated Glomerular Filt Rate > 60; Glucose 100 mg/dL (65-110); Potassium 3.9 mmol/L (3.4-5.0); Sodium 138 mmol/L (137-145); Total Protein 6.9 g/dL (6.3-8.2)
[2025-05-22] MEDS: SODIUM CHLORIDE 0.9% IV 1,000 ML 999 ML IV CONT (13:07)
[2025-05-22 13:09] LABS: Add Urine Microscopic? YES; Appearance Urine Turbid (Clear); Glucose Urine UA Negative (Negative); Leukocyte Esterase Ur 3+ LEU/UL (Negative); Need Manual Microscopic Reviewed; Nitrate Urine Negative (Negative); Non Pathogenic Casts 0-2; Specific Grav Ur 1.010 (1.001-1.035)
[2025-05-22 13:29] LABS: Partial Thromboplastin Time 30.1 Seconds (22.3-36.8)
[2025-05-22 13:47] LABS: INR 1.2; Prothrombin Time 14.7 Seconds (11.1-14.7)
[2025-05-22] MEDS: levoFLOXacin 750 MG/D5W 150 ML 750 MG/150 ML BAG 100 MG IVPB (15:45)
--- NOTE | 2025-05-22 16:08 | PC.NURSE ---
Resting on cart. Pt is hallucinating. States I shouldn't have brought those kittens in, they are going to .
== END 2025-05-22 19:28 ==
PROVIDERS: Emergency Provider Emergency Medicine; PCP Family Medicine
DX: N39.0 Urinary tract infection, site not specified (principal); I10 Essential (primary) hypertension; E78.5 Hyperlipidemia, unspecified; E83.31 Familial hypophosphatemia; K58.9 Irritable bowel syndrome, unspecified; M19.90 Unspecified osteoarthritis, unspecified site; F41.9 Anxiety disorder, unspecified; Z79.899 Other long term (current) drug therapy
CPT/HCPCS: 36415; 70450; 71045; 80053; 81001; 83605; 85025; 85610; 85730; 87086; 96361; 96365; 99284; J1956; J7030